=== PATIENT | female | born 1925 | race Two or more races ===

== ENCOUNTER 2017-04-07 10:15 | Inpatient (IN) | payer MEDICAID, OTHER, SELFPAY ==
[~2017-04-07] VITALS: Ht 152.4 cm; Wt 73.7 kg
[2017-04-07] MEDS ORDERED: SODIUM CHLORIDE FLUSH 10ML SYR IVF ONE (11:30)
[2017-04-07 11:34] LABS: INTERNATIONAL NORMALIZED RATIO 1.08 (0.93-1.1); PROTHROMBIN TIME 11.2 Seconds (9.6-11.5)
[2017-04-07 11:39] LABS: ALBUMIN 3.5 g/dL (3.4-5.0); ANION GAP 11 mmol/L (5-15); CHLORIDE 96 mmol/L (98-107)
[2017-04-07 11:43] LABS: ALANINE AMINOTRANSFERASE 20 U/L (12-78); ALKALINE PHOSPHATASE 110 U/L (45-117); BILIRUBIN,TOTAL 0.4 mg/dL (0.2-1.0); CREATININE 2.62 mg/dL (0.55-1.02); TOTAL PROTEIN 8.5 g/dL (6.4-8.2)
[2017-04-07 11:56] LABS: BASOPHILS # (AUTO) 0.03 x10^3/uL (0-0.1); BASOPHILS % (AUTO) 0 % (0-1); EOSINOPHILS % (AUTO) 0 % (1-7); LYMPHOCYTES # (AUTO) 1.24 x10^3/uL (1-3.4); LYMPHOCYTES % (AUTO) 12 % (22-44); MD NO; MEAN CORPUSCULAR VOLUME 85.3 fL (80-100); MEAN PLATELET VOLUME 10.9 fL (7.4-10.4); MONOCYTES # (AUTO) 0.77 x10^3/uL (0.2-0.8); MONOCYTES % (AUTO) 7 % (2-9); NEUTROPHILS # (AUTO) 8.54 x10^3/uL (1.8-6.8); NEUTROPHILS % (AUTO) 81 % (42-75); PLATELET COUNT 312 x10^3/uL (130-400); RED CELL DISTRIBUTION WIDTH 12.5 % (9.6-15.2)
[2017-04-07 11:58] LABS: ACETONE, SERUM Negative (Negative)
[2017-04-07 12:39] LABS: CULTURE INDICATED? YES; MICROSCOPIC INDICATED
[2017-04-07] MEDS ORDERED: SODIUM CHLORIDE 0.9% 1,000ML IVBOLUS ONE (13:00)
[2017-04-07] MEDS ORDERED: POLYETHYLENE GLYCOL 17 GM PACKET PO PRN (14:00)
[2017-04-07] MEDS ORDERED: PHARMACY MAY ADJ FOR RENAL FX MC PRN (14:00)
[2017-04-07] MEDS ORDERED: GLUCAGON 1 MG IM PRN (14:00)
[2017-04-07] MEDS ORDERED: DEXTROSE 4 GM TAB.CHEW PO PRN (14:00)
[2017-04-07] MEDS ORDERED: ENALAPRILAT 1.25 MG/ML, 2ML IVPush PRN (14:00)
[2017-04-07] MEDS ORDERED: DOCUSATE 100 MG CAPSULE PO PRN (14:00)
[2017-04-07] MEDS ORDERED: LABETALOL 5MG/ML, 20ML IVPush PRN (14:00)
[2017-04-07] MEDS ORDERED: BISACODYL 10 MG SUPP PR PRN (14:00)
[2017-04-07] MEDS ORDERED: DEXTROSE 50%, 50ML SYRINGE IVPush PRN (14:00)
[2017-04-07] MEDS ORDERED: AMIT50TA PO (14:33)
[2017-04-07] MEDS ORDERED: FURO-92 PO (14:33)
[2017-04-07] MEDS ORDERED: CLON0.2T PO (14:33)
[2017-04-07] MEDS ORDERED: DILT240C2 PO (14:33)
[2017-04-07 14:39] VITALS: BP 189/76
[2017-04-07] MEDS: SODIUM CHLORIDE 0.9% 1,000 ML IV SCH (15:51)
[2017-04-07] MEDS: LEVOFLOXACIN/PMX 750MG/150ML 150 ML IV SCH (15:52)
[2017-04-07] MEDS: HEPARIN 5,000 UNITS/ML, 1ML SQ SCH (15:54)
[2017-04-07] MEDS: INSULIN ASPART 100 UNITS/ML, PEN SQ-INSULIN SCH ×2 (16:00→20:43)
[2017-04-07 19:07] VITALS: BP 168/72
[2017-04-07] MEDS: SODIUM CHLORIDE FLUSH 10ML SYR IVF SCH (20:46)
[2017-04-08] MEDS: HEPARIN 5,000 UNITS/ML, 1ML SQ SCH ×3 (00:38→16:00)
[2017-04-08 00:54] VITALS: BP 170/74
[2017-04-08] MEDS: SODIUM CHLORIDE 0.9% 1,000 ML IV SCH (03:25)
[2017-04-08 05:34] LABS: CHLORIDE 107 mmol/L (98-107)
[2017-04-08] MEDS: ASPIRIN 325 MG TABLET EC PO SCH (05:35)
[2017-04-08 05:57] LABS: ALANINE AMINOTRANSFERASE 23 U/L (12-78); ALBUMIN 2.5 g/dL (3.4-5.0); ALKALINE PHOSPHATASE 94 U/L (45-117); ANION GAP 9 mmol/L (5-15); BILIRUBIN,TOTAL 0.5 mg/dL (0.2-1.0); CALCIUM 8.5 mg/dL (8.5-10.1); CREATININE 1.76 mg/dL (0.55-1.02); THYROID STIMULATING HORMONE 0.797 mIU/L (0.358-3.740)
[2017-04-08 06:15] LABS: BASOPHILS # (AUTO) 0.02 x10^3/uL (0-0.1); BASOPHILS % (AUTO) 0 % (0-1); EOSINOPHILS # (AUTO) 0.01 x10^3/uL (0-0.4); EOSINOPHILS % (AUTO) 0 % (1-7); LYMPHOCYTES # (AUTO) 0.98 x10^3/uL (1-3.4); LYMPHOCYTES % (AUTO) 10 % (22-44); MD NO; MEAN CORPUSCULAR HEMOGLOBIN 29.1 pg (27.0-34.8); MEAN CORPUSCULAR HGB CONC 33.4 g/dL (32.4-35.8); MEAN CORPUSCULAR VOLUME 87.2 fL (80-100); MEAN PLATELET VOLUME 9.6 fL (7.4-10.4); MONOCYTES # (AUTO) 0.69 x10^3/uL (0.2-0.8); MONOCYTES % (AUTO) 7 % (2-9); NEUTROPHILS # (AUTO) 7.85 x10^3/uL (1.8-6.8); NEUTROPHILS % (AUTO) 82 % (42-75); PLATELET COUNT 325 x10^3/uL (130-400); RED BLOOD COUNT 4.09 x10^6/uL (3.82-5.3); RED CELL DISTRIBUTION WIDTH 12.4 % (9.6-15.2)
[2017-04-08 08:00] VITALS: BP 154/67
[2017-04-08] MEDS: DILTIAZEM 240 MG CAP.ER.24H PO SCH (08:40)
[2017-04-08] MEDS: SODIUM CHLORIDE FLUSH 10ML SYR IVF SCH ×2 (08:42→21:26)
[2017-04-08] MEDS: CARVEDILOL 12.5 MG TABLET PO SCH ×2 (08:52→18:07)
[2017-04-08] MEDS: INSULIN ASPART 100 UNITS/ML, PEN SQ-INSULIN SCH ×4 (09:49→21:26)
[2017-04-08] MEDS: SODIUM BICARBONATE 8.4% 100 MEQ in DEXTROSE 5% 1,000 ML IV SCH (10:08)
[2017-04-08 14:57] VITALS: BP 135/54
[2017-04-08] MEDS: LEVOFLOXACIN/PMX 750MG/150ML 150 ML IV SCH (15:04)
[2017-04-08 19:20] VITALS: BP 135/55
[2017-04-08 19:38] LABS: ANION GAP 8 mmol/L (5-15); CALCIUM 7.8 mg/dL (8.5-10.1); CHLORIDE 106 mmol/L (98-107); CREATININE 1.72 mg/dL (0.55-1.02)
[2017-04-09 00:33] VITALS: BP 134/69
[2017-04-09 00:52] LABS: ANION GAP 8 mmol/L (5-15); CALCIUM 8.1 mg/dL (8.5-10.1); CHLORIDE 104 mmol/L (98-107); CREATININE 1.74 mg/dL (0.55-1.02)
[2017-04-09] MEDS: HEPARIN 5,000 UNITS/ML, 1ML SQ SCH ×3 (02:21→17:16)
[2017-04-09] MEDS: SODIUM BICARBONATE 8.4% 100 MEQ in DEXTROSE 5% 1,000 ML IV SCH (02:21)
[2017-04-09] MEDS: ACETAMINOPHEN 325 MG TABLET PO PRN (03:42)
[2017-04-09 05:16] LABS: BASOPHILS # (AUTO) 0.04 x10^3/uL (0-0.1); BASOPHILS % (AUTO) 1 % (0-1); EOSINOPHILS # (AUTO) 0.04 x10^3/uL (0-0.4); EOSINOPHILS % (AUTO) 0 % (1-7); LYMPHOCYTES # (AUTO) 1.26 x10^3/uL (1-3.4); LYMPHOCYTES % (AUTO) 16 % (22-44); MD NO; MEAN CORPUSCULAR HEMOGLOBIN 29.4 pg (27.0-34.8); MEAN CORPUSCULAR HGB CONC 33.8 g/dL (32.4-35.8); MEAN CORPUSCULAR VOLUME 86.9 fL (80-100); MEAN PLATELET VOLUME 9.6 fL (7.4-10.4); MONOCYTES % (AUTO) 7 % (2-9); NEUTROPHILS # (AUTO) 6.19 x10^3/uL (1.8-6.8); NEUTROPHILS % (AUTO) 76 % (42-75); PLATELET COUNT 280 x10^3/uL (130-400); RED BLOOD COUNT 3.51 x10^6/uL (3.82-5.3); RED CELL DISTRIBUTION WIDTH 12.5 % (9.6-15.2)
[2017-04-09 05:25] LABS: CHLORIDE 103 mmol/L (98-107)
[2017-04-09 05:32] LABS: ALANINE AMINOTRANSFERASE 83 U/L (12-78); ALBUMIN 2.3 g/dL (3.4-5.0); ALKALINE PHOSPHATASE 219 U/L (45-117); ANION GAP 7 mmol/L (5-15); BILIRUBIN,TOTAL 0.4 mg/dL (0.2-1.0); CALCIUM 7.8 mg/dL (8.5-10.1); CREATININE 1.66 mg/dL (0.55-1.02); TOTAL PROTEIN 6.4 g/dL (6.4-8.2)
[2017-04-09] MEDS: CARVEDILOL 12.5 MG TABLET PO SCH ×2 (06:25→18:14)
[2017-04-09] MEDS: ASPIRIN 325 MG TABLET EC PO SCH (06:26)
[2017-04-09 07:15] VITALS: BP 131/56
[2017-04-09] MEDS ORDERED: DIPHENHYDRAMINE 50 MG/ML, 1ML IVPush PRN (09:00)
[2017-04-09] MEDS ORDERED: MEROPENEM 1 GM in SODIUM CHLORIDE 0.9% 100 ML IV SCH (09:00)
[2017-04-09] MEDS: SODIUM CHLORIDE FLUSH 10ML SYR IVF SCH ×2 (09:32→21:09)
[2017-04-09] MEDS: INSULIN ASPART 100 UNITS/ML, PEN SQ-INSULIN SCH ×4 (09:32→21:09)
[2017-04-09] MEDS: INSULIN DETEMIR 100 UNITS/ML, PEN SQ-INSULIN SCH ×2 (10:25→20:05)
[2017-04-09] MEDS: SODIUM CHLORIDE 0.9% 1,000 ML IV SCH (10:26)
[2017-04-09] MEDS: DILTIAZEM 240 MG CAP.ER.24H PO SCH (11:10)
[2017-04-09 12:14] LABS: CHLORIDE 104 mmol/L (98-107)
[2017-04-09 12:22] LABS: ANION GAP 8 mmol/L (5-15); CALCIUM 8.3 mg/dL (8.5-10.1); CREATININE 1.75 mg/dL (0.55-1.02)
[2017-04-09] MEDS: ONDANSETRON 2MG/ML, 2ML IVPush PRN ×2 (13:10→21:16)
[2017-04-09 14:47] VITALS: BP 133/64
[2017-04-09 20:06] VITALS: BP 125/59
[2017-04-09] MEDS: HYDROcodone/APAP 5/325 TABLET PO PRN (21:08)
[2017-04-10] MEDS: MEROPENEM IV SCH ×3 (00:31→23:53)
[2017-04-10] MEDS: SODIUM CHLORIDE 0.9% IV SCH ×3 (00:31→23:53)
[2017-04-10] MEDS: HEPARIN 5,000 UNITS/ML, 1ML SQ SCH ×3 (00:32→16:00)
[2017-04-10] MEDS: SODIUM CHLORIDE 0.9% 1,000 ML IV SCH (00:34)
[2017-04-10 01:39] VITALS: BP 147/65
[2017-04-10] MEDS: HYDROcodone/APAP 5/325 TABLET PO PRN ×2 (03:15→11:52)
[2017-04-10 05:48] LABS: BASOPHILS # (AUTO) 0.05 x10^3/uL (0-0.1); BASOPHILS % (AUTO) 1 % (0-1); EOSINOPHILS # (AUTO) 0.08 x10^3/uL (0-0.4); EOSINOPHILS % (AUTO) 1 % (1-7); LYMPHOCYTES # (AUTO) 1.74 x10^3/uL (1-3.4); LYMPHOCYTES % (AUTO) 20 % (22-44); MD NO; MEAN CORPUSCULAR HEMOGLOBIN 29.2 pg (27.0-34.8); MEAN CORPUSCULAR HGB CONC 33.4 g/dL (32.4-35.8); MEAN CORPUSCULAR VOLUME 87.5 fL (80-100); MEAN PLATELET VOLUME 9.1 fL (7.4-10.4); MONOCYTES # (AUTO) 0.59 x10^3/uL (0.2-0.8); MONOCYTES % (AUTO) 7 % (2-9); NEUTROPHILS % (AUTO) 71 % (42-75); PLATELET COUNT 303 x10^3/uL (130-400); RED BLOOD COUNT 3.66 x10^6/uL (3.82-5.3); RED CELL DISTRIBUTION WIDTH 12.6 % (9.6-15.2)
[2017-04-10 06:04] LABS: CHLORIDE 109 mmol/L (98-107)
[2017-04-10 06:10] VITALS: BP 164/70
[2017-04-10 06:11] LABS: % IRON SATURATION 15 % (20-55); ALANINE AMINOTRANSFERASE 59 U/L (12-78); ALBUMIN 2.3 g/dL (3.4-5.0); ALKALINE PHOSPHATASE 196 U/L (45-117); ANION GAP 8 mmol/L (5-15); BILIRUBIN,TOTAL 0.3 mg/dL (0.2-1.0); CALCIUM 8.2 mg/dL (8.5-10.1); CREATININE 1.34 mg/dL (0.55-1.02); IRON LEVEL 41 mcg/dL (50-170); TOTAL IRON BINDING CAPACITY 279 mcg/dL (250-450); TOTAL PROTEIN 6.4 g/dL (6.4-8.2)
[2017-04-10] MEDS: ASPIRIN 325 MG TABLET EC PO SCH (06:11)
[2017-04-10] MEDS: CARVEDILOL 12.5 MG TABLET PO SCH ×2 (06:11→17:36)
[2017-04-10 07:14] VITALS: BP 143/60
[2017-04-10 07:24] VITALS: BP 140/66
[2017-04-10] MEDS: INSULIN ASPART 100 UNITS/ML, PEN SQ-INSULIN SCH ×4 (08:52→21:33)
[2017-04-10] MEDS: SODIUM CHLORIDE FLUSH 10ML SYR IVF SCH ×2 (08:52→21:32)
[2017-04-10] MEDS: INSULIN DETEMIR 100 UNITS/ML, PEN SQ-INSULIN SCH ×2 (08:53→21:33)
[2017-04-10] MEDS: DILTIAZEM 240 MG CAP.ER.24H PO SCH (08:53)
[2017-04-10 12:58] VITALS: BP 131/46
[2017-04-10] MEDS ORDERED: SODIUM CHLORIDE 0.9% 1,000 ML IV SCH (17:00)
[2017-04-10] MEDS: FERROUS GLUCONATE 324 MG TABLET PO SCH (17:36)
[2017-04-10] MEDS: ONDANSETRON 2MG/ML, 2ML IVPush PRN (17:51)
[2017-04-10 19:46] VITALS: BP 144/61
[2017-04-11] MEDS: HYDROcodone/APAP 5/325 TABLET PO PRN ×2 (00:01→09:30)
[2017-04-11] MEDS: ONDANSETRON 2MG/ML, 2ML IVPush PRN (00:01)
[2017-04-11] MEDS: HEPARIN 5,000 UNITS/ML, 1ML SQ SCH ×3 (00:10→18:23)
[2017-04-11 01:03] VITALS: BP 113/77
[2017-04-11] MEDS: CARVEDILOL 12.5 MG TABLET PO SCH ×2 (05:45→18:23)
[2017-04-11] MEDS: ASPIRIN 325 MG TABLET EC PO SCH (05:45)
[2017-04-11 07:23] VITALS: BP 169/69
[2017-04-11] MEDS: INSULIN DETEMIR 100 UNITS/ML, PEN SQ-INSULIN SCH ×2 (09:20→21:26)
[2017-04-11] MEDS: DILTIAZEM 240 MG CAP.ER.24H PO SCH (09:20)
[2017-04-11] MEDS: INSULIN ASPART 100 UNITS/ML, PEN SQ-INSULIN SCH ×4 (09:21→21:26)
[2017-04-11] MEDS ORDERED: SODIUM CHLORIDE 0.9% 1,000 ML IV SCH (09:30)
[2017-04-11] MEDS: SODIUM CHLORIDE FLUSH 10ML SYR IVF SCH ×2 (09:31→21:28)
[2017-04-11 10:47] LABS: ALANINE AMINOTRANSFERASE 42 U/L (12-78); ALBUMIN 2.2 g/dL (3.4-5.0); ANION GAP 10 mmol/L (5-15); CALCIUM 7.7 mg/dL (8.5-10.1); CHLORIDE 107 mmol/L (98-107); CREATININE 1.11 mg/dL (0.55-1.02)
[2017-04-11 10:49] LABS: ALKALINE PHOSPHATASE 195 U/L (45-117); BILIRUBIN,TOTAL 0.3 mg/dL (0.2-1.0); TOTAL PROTEIN 6.1 g/dL (6.4-8.2)
[2017-04-11 10:54] LABS: BASOPHILS # (AUTO) 0.04 x10^3/uL (0-0.1); BASOPHILS % (AUTO) 0 % (0-1); EOSINOPHILS # (AUTO) 0.05 x10^3/uL (0-0.4); EOSINOPHILS % (AUTO) 0 % (1-7); LYMPHOCYTES # (AUTO) 1.69 x10^3/uL (1-3.4); LYMPHOCYTES % (AUTO) 16 % (22-44); MD NO; MEAN CORPUSCULAR HEMOGLOBIN 28.8 pg (27.0-34.8); MEAN CORPUSCULAR HGB CONC 33.1 g/dL (32.4-35.8); MEAN PLATELET VOLUME 9.6 fL (7.4-10.4); MONOCYTES # (AUTO) 0.73 x10^3/uL (0.2-0.8); MONOCYTES % (AUTO) 7 % (2-9); NEUTROPHILS # (AUTO) 8.12 x10^3/uL (1.8-6.8); NEUTROPHILS % (AUTO) 76 % (42-75); PLATELET COUNT 270 x10^3/uL (130-400); RED BLOOD COUNT 3.44 x10^6/uL (3.82-5.3); RED CELL DISTRIBUTION WIDTH 12.9 % (9.6-15.2)
[2017-04-11] MEDS: MEROPENEM IV SCH (12:04)
[2017-04-11] MEDS: SODIUM CHLORIDE 0.9% IV SCH (12:04)
[2017-04-11 13:57] VITALS: BP 128/58
[2017-04-11] MEDS: IRON SUCROSE COMPLEX 100MG/5ML IV SCH (14:46)
[2017-04-11] MEDS: FERROUS GLUCONATE 324 MG TABLET PO SCH (18:23)
[2017-04-11 18:59] VITALS: BP 163/61
[2017-04-11] MEDS: metroNIDAZOLE 500 MG TABLET PO SCH (21:26)
[2017-04-12] MEDS: HYDROcodone/APAP 5/325 TABLET PO PRN ×3 (00:35→18:08)
[2017-04-12 01:12] VITALS: BP 170/58
[2017-04-12] MEDS: HEPARIN 5,000 UNITS/ML, 1ML SQ SCH ×3 (02:11→18:02)
[2017-04-12 05:40] VITALS: BP 179/68
[2017-04-12] MEDS: CARVEDILOL 12.5 MG TABLET PO SCH ×2 (05:41→18:01)
[2017-04-12] MEDS: ASPIRIN 325 MG TABLET EC PO SCH (05:41)
[2017-04-12 08:00] VITALS: BP 158/63
[2017-04-12] MEDS: metroNIDAZOLE 500 MG TABLET PO SCH ×2 (08:26→20:02)
[2017-04-12] MEDS: IRON SUCROSE COMPLEX 100MG/5ML IV SCH (08:26)
[2017-04-12] MEDS: DILTIAZEM 240 MG CAP.ER.24H PO SCH (08:26)
[2017-04-12] MEDS: INSULIN DETEMIR 100 UNITS/ML, PEN SQ-INSULIN SCH ×2 (08:27→20:02)
[2017-04-12] MEDS: INSULIN ASPART 100 UNITS/ML, PEN SQ-INSULIN SCH ×4 (08:27→20:03)
[2017-04-12] MEDS: SODIUM CHLORIDE FLUSH 10ML SYR IVF SCH ×2 (08:28→20:02)
[2017-04-12 13:35] VITALS: BP 137/62
[2017-04-12 19:03] VITALS: BP 164/74
[2017-04-12] MEDS: FERROUS GLUCONATE 324 MG TABLET PO SCH (19:24)
[2017-04-13] MEDS: HYDROcodone/APAP 5/325 TABLET PO PRN (00:33)
[2017-04-13 01:38] VITALS: BP 164/57
[2017-04-13] MEDS: HEPARIN 5,000 UNITS/ML, 1ML SQ SCH ×3 (01:43→18:22)
[2017-04-13] MEDS: ASPIRIN 325 MG TABLET EC PO SCH (05:32)
[2017-04-13] MEDS: CARVEDILOL 12.5 MG TABLET PO SCH ×2 (05:32→18:22)
[2017-04-13 09:04] VITALS: BP 171/67
[2017-04-13] MEDS: INSULIN ASPART 100 UNITS/ML, PEN SQ-INSULIN SCH ×4 (09:42→21:42)
[2017-04-13] MEDS: INSULIN DETEMIR 100 UNITS/ML, PEN SQ-INSULIN SCH ×2 (09:43→21:42)
[2017-04-13] MEDS: DILTIAZEM 240 MG CAP.ER.24H PO SCH (09:43)
[2017-04-13] MEDS: SODIUM CHLORIDE FLUSH 10ML SYR IVF SCH ×2 (09:43→21:43)
[2017-04-13] MEDS: IRON SUCROSE COMPLEX 100MG/5ML IV SCH (09:43)
[2017-04-13 09:45] VITALS: BP 169/55
[2017-04-13] MEDS: metroNIDAZOLE 500 MG TABLET PO SCH ×2 (09:46→21:42)
[2017-04-13 15:23] VITALS: BP 136/56
[2017-04-13] MEDS: FERROUS GLUCONATE 324 MG TABLET PO SCH (18:21)
[2017-04-13 19:59] VITALS: BP 159/66
[2017-04-14 02:06] VITALS: BP 142/58
[2017-04-14] MEDS: HEPARIN 5,000 UNITS/ML, 1ML SQ SCH ×3 (02:08→17:43)
[2017-04-14] MEDS: HYDROcodone/APAP 5/325 TABLET PO PRN ×2 (02:08→20:14)
[2017-04-14 04:37] VITALS: BP 160/63
[2017-04-14] MEDS: CARVEDILOL 12.5 MG TABLET PO SCH ×2 (06:30→17:44)
[2017-04-14] MEDS: ASPIRIN 325 MG TABLET EC PO SCH (06:30)
[2017-04-14 09:17] VITALS: BP 148/76
[2017-04-14] MEDS: IRON SUCROSE COMPLEX 100MG/5ML IV SCH (09:19)
[2017-04-14] MEDS: DILTIAZEM 240 MG CAP.ER.24H PO SCH (09:19)
[2017-04-14] MEDS: metroNIDAZOLE 500 MG TABLET PO SCH ×2 (09:19→20:14)
[2017-04-14] MEDS: INSULIN DETEMIR 100 UNITS/ML, PEN SQ-INSULIN SCH ×2 (09:19→21:46)
[2017-04-14] MEDS: SODIUM CHLORIDE FLUSH 10ML SYR IVF SCH ×2 (09:19→20:14)
[2017-04-14] MEDS: INSULIN ASPART 100 UNITS/ML, PEN SQ-INSULIN SCH ×4 (09:19→21:47)
[2017-04-14 11:17] LABS: BASOPHILS # (AUTO) 0.05 x10^3/uL (0-0.1); BASOPHILS % (AUTO) 1 % (0-1); EOSINOPHILS # (AUTO) 0.03 x10^3/uL (0-0.4); EOSINOPHILS % (AUTO) 0 % (1-7); LYMPHOCYTES # (AUTO) 1.54 x10^3/uL (1-3.4); LYMPHOCYTES % (AUTO) 15 % (22-44); MD NO; MEAN CORPUSCULAR HEMOGLOBIN 29.2 pg (27.0-34.8); MEAN CORPUSCULAR HGB CONC 33.1 g/dL (32.4-35.8); MEAN CORPUSCULAR VOLUME 88.2 fL (80-100); MEAN PLATELET VOLUME 8.9 fL (7.4-10.4); MONOCYTES # (AUTO) 0.85 x10^3/uL (0.2-0.8); MONOCYTES % (AUTO) 8 % (2-9); NEUTROPHILS # (AUTO) 7.63 x10^3/uL (1.8-6.8); NEUTROPHILS % (AUTO) 75 % (42-75); PLATELET COUNT 229 x10^3/uL (130-400); RED BLOOD COUNT 3.58 x10^6/uL (3.82-5.3); RED CELL DISTRIBUTION WIDTH 12.9 % (9.6-15.2)
[2017-04-14 11:37] LABS: ALANINE AMINOTRANSFERASE 26 U/L (12-78); ALBUMIN 2.1 g/dL (3.4-5.0); ANION GAP 8 mmol/L (5-15); CALCIUM 8.2 mg/dL (8.5-10.1); CHLORIDE 108 mmol/L (98-107); CREATININE 1.05 mg/dL (0.55-1.02)
[2017-04-14 11:39] LABS: ALKALINE PHOSPHATASE 189 U/L (45-117); BILIRUBIN,TOTAL 0.3 mg/dL (0.2-1.0); TOTAL PROTEIN 6.3 g/dL (6.4-8.2)
[2017-04-14 13:03] LABS: HEMOGLOBIN A1C 11.8 % (4.2-6.3)
[2017-04-14 13:49] VITALS: BP 155/67
[2017-04-14] MEDS: FERROUS GLUCONATE 324 MG TABLET PO SCH (17:44)
[2017-04-14 19:29] VITALS: BP 167/61
[2017-04-15] MEDS: HEPARIN 5,000 UNITS/ML, 1ML SQ SCH ×3 (03:17→22:27)
[2017-04-15 03:19] VITALS: BP 178/70
[2017-04-15] MEDS: HYDROcodone/APAP 5/325 TABLET PO PRN (03:28)
[2017-04-15] MEDS: ASPIRIN 325 MG TABLET EC PO SCH (05:31)
[2017-04-15] MEDS: CARVEDILOL 12.5 MG TABLET PO SCH ×2 (05:32→17:18)
[2017-04-15 07:46] VITALS: BP 164/62
[2017-04-15] MEDS: IRON SUCROSE COMPLEX 100MG/5ML IV SCH (09:24)
[2017-04-15] MEDS: INSULIN ASPART 100 UNITS/ML, PEN SQ-INSULIN SCH ×4 (09:24→22:28)
[2017-04-15] MEDS: metroNIDAZOLE 500 MG TABLET PO SCH (09:25)
[2017-04-15] MEDS: DILTIAZEM 240 MG CAP.ER.24H PO SCH (09:25)
[2017-04-15] MEDS: SODIUM CHLORIDE FLUSH 10ML SYR IVF SCH ×2 (09:25→22:29)
[2017-04-15] MEDS: INSULIN DETEMIR 100 UNITS/ML, PEN SQ-INSULIN SCH ×2 (09:39→22:28)
[2017-04-15 14:01] VITALS: BP 158/67
[2017-04-15] MEDS ORDERED: VANCOMYCIN PER PHARMACY MC PRN (14:30)
[2017-04-15] MEDS: AMLODIPINE 5 MG TABLET PO SCH (14:49)
[2017-04-15] MEDS ORDERED: VANCOMYCIN 1,200 MG in SODIUM CHLORIDE 0.9% 250 ML IV SCH (15:30)
[2017-04-15] MEDS ORDERED: PHARMACOKINETIC CONSULTATION MC ONE (15:30)
[2017-04-15] MEDS ORDERED: PHARMACOKINETIC MONITORING MC PRN (15:30)
[2017-04-15] MEDS: CEFEPIME 2 GM in DEXTROSE 5% 100 ML IV SCH (16:40)
[2017-04-15] MEDS: FERROUS GLUCONATE 324 MG TABLET PO SCH (17:18)
[2017-04-15] MEDS: METRONIDAZOLE PMX 500MG/100ML 100 ML IV SCH (17:19)
[2017-04-15 19:09] VITALS: BP 165/83
[2017-04-16] MEDS: CEFEPIME 2 GM in DEXTROSE 5% 100 ML IV SCH ×2 (00:43→08:00)
[2017-04-16] MEDS: HYDROcodone/APAP 5/325 TABLET PO PRN (01:29)
[2017-04-16] MEDS: METRONIDAZOLE PMX 500MG/100ML 100 ML IV SCH (01:29)
[2017-04-16 03:53] VITALS: BP 193/87
[2017-04-16] MEDS: CARVEDILOL 12.5 MG TABLET PO SCH ×2 (05:55→17:29)
[2017-04-16] MEDS: ASPIRIN 325 MG TABLET EC PO SCH (05:55)
[2017-04-16] MEDS: HEPARIN 5,000 UNITS/ML, 1ML SQ SCH ×2 (05:55→15:27)
[2017-04-16 05:56] LABS: BASOPHILS % (AUTO) 0 % (0-1); EOSINOPHILS # (AUTO) 0.11 x10^3/uL (0-0.4); EOSINOPHILS % (AUTO) 1 % (1-7); LYMPHOCYTES # (AUTO) 1.29 x10^3/uL (1-3.4); LYMPHOCYTES % (AUTO) 13 % (22-44); MD NO; MEAN CORPUSCULAR HGB CONC 32.5 g/dL (32.4-35.8); MEAN CORPUSCULAR VOLUME 89.1 fL (80-100); MEAN PLATELET VOLUME 9.3 fL (7.4-10.4); MONOCYTES # (AUTO) 0.89 x10^3/uL (0.2-0.8); MONOCYTES % (AUTO) 9 % (2-9); NEUTROPHILS # (AUTO) 7.75 x10^3/uL (1.8-6.8); NEUTROPHILS % (AUTO) 77 % (42-75); PLATELET COUNT 231 x10^3/uL (130-400); RED BLOOD COUNT 3.78 x10^6/uL (3.82-5.3); RED CELL DISTRIBUTION WIDTH 13.1 % (9.6-15.2)
[2017-04-16 06:05] LABS: CHLORIDE 109 mmol/L (98-107)
[2017-04-16 06:10] LABS: ANION GAP 10 mmol/L (5-15); CALCIUM 8.1 mg/dL (8.5-10.1); CREATININE 1.01 mg/dL (0.55-1.02)
[2017-04-16 07:44] VITALS: BP 181/70
[2017-04-16] MEDS ORDERED: CEFTRIAXONE PMX 1GM/50ML 50 ML IV SCH (08:30)
[2017-04-16] MEDS ORDERED: INSULIN DETEMIR 100 UNITS/ML, PEN SQ-INSULIN SCH (09:00)
[2017-04-16] MEDS ORDERED: IRON SUCROSE COMPLEX 100MG/5ML IV SCH (09:00)
[2017-04-16] MEDS: AMLODIPINE 5 MG TABLET PO SCH (09:19)
[2017-04-16] MEDS: DILTIAZEM 240 MG CAP.ER.24H PO SCH (09:19)
[2017-04-16] MEDS: INSULIN ASPART 100 UNITS/ML, PEN SQ-INSULIN SCH ×4 (09:20→21:30)
[2017-04-16] MEDS: SODIUM CHLORIDE FLUSH 10ML SYR IVF SCH ×2 (09:22→21:28)
[2017-04-16] MEDS: AZITHROMYCIN 500 MG in SODIUM CHLORIDE 0.9% 250 ML IV SCH (10:08)
[2017-04-16 12:00] VITALS: BP 169/72
[2017-04-16] MEDS: FERROUS GLUCONATE 324 MG TABLET PO SCH (17:29)
[2017-04-16 20:52] VITALS: BP 142/61
[2017-04-16] MEDS: GUAIFENESIN ER 600 MG TABLET PO SCH (21:29)
[2017-04-17] MEDS: HEPARIN 5,000 UNITS/ML, 1ML SQ SCH ×3 (00:05→16:24)
[2017-04-17 02:50] VITALS: BP 161/68
[2017-04-17] MEDS: ASPIRIN 325 MG TABLET EC PO SCH (05:17)
[2017-04-17] MEDS: CARVEDILOL 12.5 MG TABLET PO SCH ×2 (05:17→18:20)
[2017-04-17 05:18] LABS: BASOPHILS # (AUTO) 0.04 x10^3/uL (0-0.1); BASOPHILS % (AUTO) 0 % (0-1); EOSINOPHILS # (AUTO) 0.27 x10^3/uL (0-0.4); EOSINOPHILS % (AUTO) 3 % (1-7); LYMPHOCYTES # (AUTO) 1.37 x10^3/uL (1-3.4); LYMPHOCYTES % (AUTO) 13 % (22-44); MD NO; MEAN CORPUSCULAR HEMOGLOBIN 29.4 pg (27.0-34.8); MEAN CORPUSCULAR HGB CONC 32.9 g/dL (32.4-35.8); MEAN CORPUSCULAR VOLUME 89.4 fL (80-100); MEAN PLATELET VOLUME 9.4 fL (7.4-10.4); MONOCYTES # (AUTO) 0.97 x10^3/uL (0.2-0.8); MONOCYTES % (AUTO) 9 % (2-9); NEUTROPHILS # (AUTO) 7.86 x10^3/uL (1.8-6.8); NEUTROPHILS % (AUTO) 75 % (42-75); PLATELET COUNT 235 x10^3/uL (130-400); RED BLOOD COUNT 3.66 x10^6/uL (3.82-5.3); RED CELL DISTRIBUTION WIDTH 13.5 % (9.6-15.2)
[2017-04-17 06:40] LABS: ALANINE AMINOTRANSFERASE 29 U/L (12-78); ALBUMIN 2.2 g/dL (3.4-5.0); ALKALINE PHOSPHATASE 174 U/L (45-117); ANION GAP 10 mmol/L (5-15); BILIRUBIN,TOTAL 0.3 mg/dL (0.2-1.0); CALCIUM 8.9 mg/dL (8.5-10.1); CHLORIDE 111 mmol/L (98-107); CREATININE 0.91 mg/dL (0.55-1.02); TOTAL PROTEIN 6.5 g/dL (6.4-8.2)
[2017-04-17] MEDS: INSULIN ASPART 100 UNITS/ML, PEN SQ-INSULIN SCH ×4 (07:00→20:18)
[2017-04-17 08:02] VITALS: BP 165/69
[2017-04-17] MEDS ORDERED: POTASSIUM PHOSPHATE 44 MEQ in SODIUM CHLORIDE 0.9% 500 ML IV ONE (09:00)
[2017-04-17] MEDS ORDERED: AMLODIPINE 2.5 MG TABLET PO SCH (09:00)
[2017-04-17] MEDS: AMLODIPINE 5 MG TABLET PO SCH ×3 (09:00→23:20)
[2017-04-17] MEDS ORDERED: AMLODIPINE 5 MG TABLET ONE (09:14)
[2017-04-17] MEDS: metroNIDAZOLE 500 MG TABLET PO SCH ×4 (09:25→23:17)
[2017-04-17] MEDS: CEFTRIAXONE 1,000 MG in SODIUM CHLORIDE 0.9% 50 ML IV SCH (09:25)
[2017-04-17] MEDS: SODIUM CHLORIDE FLUSH 10ML SYR IVF SCH ×2 (09:25→20:16)
[2017-04-17] MEDS: DILTIAZEM 240 MG CAP.ER.24H PO SCH (09:25)
[2017-04-17] MEDS: GUAIFENESIN ER 600 MG TABLET PO SCH ×3 (09:25→23:18)
[2017-04-17] MEDS: INSULIN DETEMIR 100 UNITS/ML, PEN SQ-INSULIN SCH (09:26)
[2017-04-17] MEDS: AZITHROMYCIN 500 MG in SODIUM CHLORIDE 0.9% 250 ML IV SCH (11:24)
[2017-04-17 12:29] VITALS: BP 139/84
[2017-04-17] MEDS: FERROUS GLUCONATE 324 MG TABLET PO SCH (16:24)
[2017-04-17 19:06] VITALS: BP 160/77
[2017-04-17 23:13] VITALS: BP 171/69
[2017-04-17] MEDS: ACETAMINOPHEN 325 MG TABLET PO PRN (23:17)
[2017-04-18 01:24] VITALS: BP 155/69
[2017-04-18 05:35] LABS: CHLORIDE 109 mmol/L (98-107)
[2017-04-18 05:46] LABS: ANION GAP 9 mmol/L (5-15); CALCIUM 8.4 mg/dL (8.5-10.1); CREATININE 1.02 mg/dL (0.55-1.02)
[2017-04-18 06:30] VITALS: BP 180/77
[2017-04-18] MEDS: ASPIRIN 325 MG TABLET EC PO SCH (06:34)
[2017-04-18] MEDS: HEPARIN 5,000 UNITS/ML, 1ML SQ SCH ×3 (06:34→21:19)
[2017-04-18] MEDS: CARVEDILOL 12.5 MG TABLET PO SCH (06:34)
[2017-04-18 09:19] VITALS: BP 156/65
[2017-04-18] MEDS: INSULIN ASPART 100 UNITS/ML, PEN SQ-INSULIN SCH ×4 (10:19→21:08)
[2017-04-18] MEDS: INSULIN DETEMIR 100 UNITS/ML, PEN SQ-INSULIN SCH (10:20)
[2017-04-18] MEDS: AMLODIPINE 5 MG TABLET PO SCH ×2 (10:20→21:08)
[2017-04-18] MEDS: DILTIAZEM 240 MG CAP.ER.24H PO SCH (10:21)
[2017-04-18] MEDS: GUAIFENESIN ER 600 MG TABLET PO SCH ×2 (10:21→21:08)
[2017-04-18] MEDS: metroNIDAZOLE 500 MG TABLET PO SCH ×3 (10:21→21:08)
[2017-04-18] MEDS: SODIUM CHLORIDE FLUSH 10ML SYR IVF SCH ×2 (10:21→21:07)
[2017-04-18] MEDS: AZITHROMYCIN 500 MG in SODIUM CHLORIDE 0.9% 250 ML IV SCH (10:47)
[2017-04-18 13:38] VITALS: BP 148/68
[2017-04-18] MEDS: CEFTRIAXONE 1,000 MG in SODIUM CHLORIDE 0.9% 50 ML IV SCH (13:43)
[2017-04-18] MEDS: HYDROcodone/APAP 5/325 TABLET PO PRN (14:05)
[2017-04-18] MEDS: ALBUTEROL SULFATE 2.5 MG/3 ML NPPB SCH ×2 (15:23→20:50)
[2017-04-18] MEDS ORDERED: ALBUTEROL SULFATE 2.5 MG/3 ML NPPB PRN (15:30)
[2017-04-18] MEDS ORDERED: OMNIPAQUE 350 MG/ML, 100ML BOTTLE ONE (15:52)
[2017-04-18 16:22] VITALS: BP 139/98
[2017-04-18] MEDS: CARVEDILOL 25 MG TABLET PO SCH (17:38)
[2017-04-18] MEDS: FERROUS GLUCONATE 324 MG TABLET PO SCH (17:38)
[2017-04-18 20:15] VITALS: BP 165/72
[2017-04-19 01:43] VITALS: BP 150/80
[2017-04-19] MEDS: ASPIRIN 325 MG TABLET EC PO SCH (06:26)
[2017-04-19] MEDS: HEPARIN 5,000 UNITS/ML, 1ML SQ SCH ×2 (06:26→17:03)
[2017-04-19] MEDS: CARVEDILOL 25 MG TABLET PO SCH ×2 (06:29→17:03)
[2017-04-19 07:13] VITALS: BP 156/80
[2017-04-19] MEDS: metroNIDAZOLE 500 MG TABLET PO SCH ×3 (09:39→21:00)
[2017-04-19] MEDS: DILTIAZEM 240 MG CAP.ER.24H PO SCH (09:39)
[2017-04-19] MEDS: GUAIFENESIN ER 600 MG TABLET PO SCH ×2 (09:40→21:18)
[2017-04-19] MEDS: AMLODIPINE 5 MG TABLET PO SCH ×2 (09:40→21:18)
[2017-04-19] MEDS: SODIUM CHLORIDE FLUSH 10ML SYR IVF SCH ×2 (09:41→21:17)
[2017-04-19] MEDS: INSULIN ASPART 100 UNITS/ML, PEN SQ-INSULIN SCH ×3 (09:41→16:00)
[2017-04-19] MEDS: INSULIN DETEMIR 100 UNITS/ML, PEN SQ-INSULIN SCH (09:42)
[2017-04-19] MEDS: ALBUTEROL SULFATE 2.5 MG/3 ML NPPB SCH ×3 (11:20→20:29)
[2017-04-19 12:28] VITALS: BP 136/56
[2017-04-19] MEDS: AZITHROMYCIN 500 MG in SODIUM CHLORIDE 0.9% 250 ML IV SCH (13:04)
[2017-04-19] MEDS: CEFTRIAXONE 1,000 MG in SODIUM CHLORIDE 0.9% 50 ML IV SCH (14:18)
[2017-04-19] MEDS: ONDANSETRON 2MG/ML, 2ML IVPush PRN (14:18)
[2017-04-19] MEDS: FERROUS GLUCONATE 324 MG TABLET PO SCH (17:03)
[2017-04-19 19:33] VITALS: BP 121/71
[2017-04-19] MEDS: INSULIN LISPRO 100 UNITS/ML, PEN SQ-INSULIN SCH (22:07)
[2017-04-20] MEDS: HEPARIN 5,000 UNITS/ML, 1ML SQ SCH ×3 (00:03→17:09)
[2017-04-20 00:29] VITALS: BP 128/63
[2017-04-20 05:09] LABS: ALBUMIN 2.3 g/dL (3.4-5.0); ANION GAP 9 mmol/L (5-15); CHLORIDE 110 mmol/L (98-107)
[2017-04-20 05:13] LABS: ALANINE AMINOTRANSFERASE 24 U/L (12-78); ALKALINE PHOSPHATASE 110 U/L (45-117); BILIRUBIN,TOTAL 0.4 mg/dL (0.2-1.0); TOTAL PROTEIN 6.4 g/dL (6.4-8.2)
[2017-04-20 05:21] LABS: BASOPHILS # (AUTO) 0.04 x10^3/uL (0-0.1); BASOPHILS % (AUTO) 1 % (0-1); EOSINOPHILS # (AUTO) 0.07 x10^3/uL (0-0.4); EOSINOPHILS % (AUTO) 1 % (1-7); LYMPHOCYTES # (AUTO) 1.15 x10^3/uL (1-3.4); LYMPHOCYTES % (AUTO) 17 % (22-44); MD NO; MEAN CORPUSCULAR HEMOGLOBIN 29.2 pg (27.0-34.8); MEAN CORPUSCULAR HGB CONC 32.6 g/dL (32.4-35.8); MEAN CORPUSCULAR VOLUME 89.5 fL (80-100); MEAN PLATELET VOLUME 9.4 fL (7.4-10.4); MONOCYTES % (AUTO) 9 % (2-9); NEUTROPHILS # (AUTO) 4.75 x10^3/uL (1.8-6.8); NEUTROPHILS % (AUTO) 72 % (42-75); PLATELET COUNT 245 x10^3/uL (130-400); RED BLOOD COUNT 3.63 x10^6/uL (3.82-5.3); RED CELL DISTRIBUTION WIDTH 14.3 % (9.6-15.2)
[2017-04-20] MEDS: ASPIRIN 325 MG TABLET EC PO SCH (06:17)
[2017-04-20] MEDS: CARVEDILOL 25 MG TABLET PO SCH ×2 (06:17→17:10)
[2017-04-20 06:46] VITALS: BP 113/61
[2017-04-20] MEDS ORDERED: INSULIN LISPRO 100 UNITS/ML, PEN SQ-INSULIN SCH (07:00)
[2017-04-20] MEDS: INSULIN LISPRO 100 UNITS/ML, PEN SQ-INSULIN SCH ×4 (08:20→20:48)
[2017-04-20] MEDS: SODIUM CHLORIDE FLUSH 10ML SYR IVF SCH ×2 (08:21→22:12)
[2017-04-20] MEDS: GUAIFENESIN ER 600 MG TABLET PO SCH ×2 (08:22→20:47)
[2017-04-20] MEDS: metroNIDAZOLE 500 MG TABLET PO SCH ×3 (08:22→21:00)
[2017-04-20] MEDS: AMLODIPINE 5 MG TABLET PO SCH ×2 (08:22→20:47)
[2017-04-20] MEDS: DILTIAZEM 240 MG CAP.ER.24H PO SCH (08:22)
[2017-04-20] MEDS: INSULIN DETEMIR 100 UNITS/ML, PEN SQ-INSULIN SCH (08:23)
[2017-04-20] MEDS: ALBUTEROL SULFATE 2.5 MG/3 ML NPPB SCH ×3 (10:50→20:13)
[2017-04-20] MEDS: AZITHROMYCIN 500 MG in SODIUM CHLORIDE 0.9% 250 ML IV SCH (13:12)
[2017-04-20] MEDS: CEFTRIAXONE 1,000 MG in SODIUM CHLORIDE 0.9% 50 ML IV SCH (14:20)
[2017-04-20 14:49] VITALS: BP 110/64
[2017-04-20] MEDS: FERROUS GLUCONATE 324 MG TABLET PO SCH (17:09)
[2017-04-20] MEDS ORDERED: SODIUM CHLORIDE 0.9% 1,000 ML IV ONE (17:30)
[2017-04-20] MEDS ORDERED: SODIUM CHLORIDE 0.9% 1,000 ML IV SCH (17:30)
[2017-04-20 19:09] VITALS: BP 128/53
[2017-04-21] MEDS: HEPARIN 5,000 UNITS/ML, 1ML SQ SCH ×3 (00:36→16:49)
[2017-04-21 00:58] VITALS: BP 136/58
[2017-04-21 06:28] VITALS: BP 139/55
[2017-04-21] MEDS: ASPIRIN 325 MG TABLET EC PO SCH (06:31)
[2017-04-21] MEDS: CARVEDILOL 25 MG TABLET PO SCH ×2 (06:31→16:49)
[2017-04-21] MEDS: INSULIN DETEMIR 100 UNITS/ML, PEN SQ-INSULIN SCH (08:21)
[2017-04-21] MEDS: INSULIN LISPRO 100 UNITS/ML, PEN SQ-INSULIN SCH ×4 (08:22→20:10)
[2017-04-21] MEDS: GUAIFENESIN ER 600 MG TABLET PO SCH ×2 (08:23→20:10)
[2017-04-21] MEDS: metroNIDAZOLE 500 MG TABLET PO SCH (08:23)
[2017-04-21] MEDS: DOCUSATE 100 MG CAPSULE PO SCH ×2 (08:23→20:10)
[2017-04-21] MEDS: AMLODIPINE 5 MG TABLET PO SCH ×2 (08:24→20:11)
[2017-04-21] MEDS: DILTIAZEM 240 MG CAP.ER.24H PO SCH (08:24)
[2017-04-21] MEDS: SODIUM CHLORIDE FLUSH 10ML SYR IVF SCH ×2 (08:24→20:11)
[2017-04-21] MEDS: ALBUTEROL SULFATE 2.5 MG/3 ML NPPB SCH ×2 (10:58→19:33)
[2017-04-21] MEDS: POLYETHYLENE GLYCOL 17 GM PACKET PO SCH (11:58)
[2017-04-21] MEDS: AZITHROMYCIN 500 MG in SODIUM CHLORIDE 0.9% 250 ML IV SCH (11:58)
[2017-04-21 12:45] VITALS: BP 137/58
[2017-04-21] MEDS: FERROUS GLUCONATE 324 MG TABLET PO SCH (16:49)
[2017-04-21 19:04] VITALS: BP 142/64
[2017-04-21] MEDS ORDERED: ALBUTEROL/IPRATROPIUM 2.5MG/0.5MG, 3 ML ONE (19:28)
[2017-04-21] MEDS: QUETIAPINE 25MG TABLET PO SCH (20:11)
[2017-04-22] VITALS (7 sets, daily range): BP systolic 118–156; BP diastolic 45–74
[2017-04-22] MEDS: HEPARIN 5,000 UNITS/ML, 1ML SQ SCH ×3 (00:37→16:39)
[2017-04-22] MEDS: ASPIRIN 325 MG TABLET EC PO SCH (05:58)
[2017-04-22] MEDS: CARVEDILOL 25 MG TABLET PO SCH ×2 (05:58→16:40)
[2017-04-22] MEDS: ALBUTEROL SULFATE 2.5 MG/3 ML NPPB SCH (07:40)
[2017-04-22] MEDS: INSULIN LISPRO 100 UNITS/ML, PEN SQ-INSULIN SCH ×4 (08:15→21:58)
[2017-04-22] MEDS ORDERED: INSULIN DETEMIR 100 UNITS/ML, PEN SQ-INSULIN SCH ×2 (09:00)
[2017-04-22] MEDS ORDERED: ALBUTEROL/IPRATROPIUM 2.5MG/0.5MG, 3 ML NPPB PRN (09:00)
[2017-04-22] MEDS: SODIUM CHLORIDE FLUSH 10ML SYR IVF SCH ×2 (09:00→21:02)
[2017-04-22] MEDS: ALBUTEROL/IPRATROPIUM 2.5MG/0.5MG, 3 ML NPPB SCH ×3 (10:20→19:40)
[2017-04-22] MEDS: INSULIN GLARGINE 100 UNITS/ML, PEN SQ-INSULIN SCH (10:42)
[2017-04-22] MEDS: DOCUSATE 100 MG CAPSULE PO SCH ×2 (10:42→21:03)
[2017-04-22] MEDS: POLYETHYLENE GLYCOL 17 GM PACKET PO SCH (10:42)
[2017-04-22] MEDS: GUAIFENESIN ER 600 MG TABLET PO SCH ×2 (10:43→21:03)
[2017-04-22] MEDS: AMLODIPINE 5 MG TABLET PO SCH ×2 (10:45→21:00)
[2017-04-22] MEDS: DILTIAZEM 240 MG CAP.ER.24H PO SCH (10:46)
[2017-04-22] MEDS ORDERED: FUROSEMIDE 40 MG/4 ML IVPush ONE (14:30)
[2017-04-22 16:33] LABS: ALBUMIN 2.3 g/dL (3.4-5.0); ANION GAP 8 mmol/L (5-15); CHLORIDE 111 mmol/L (98-107)
[2017-04-22 16:36] LABS: ALANINE AMINOTRANSFERASE 21 U/L (12-78); ALKALINE PHOSPHATASE 102 U/L (45-117); BILIRUBIN,TOTAL 0.2 mg/dL (0.2-1.0); CREATININE 1.09 mg/dL (0.55-1.02); TOTAL PROTEIN 6.6 g/dL (6.4-8.2)
[2017-04-22] MEDS: FERROUS GLUCONATE 324 MG TABLET PO SCH (16:40)
[2017-04-22] MEDS ORDERED: FUROSEMIDE 20 MG/2 ML ONE (18:12)
[2017-04-22] MEDS ORDERED: FUROSEMIDE 20 MG/2 ML IV ONE ×2 (18:30→22:30)
[2017-04-22] MEDS: QUETIAPINE 25MG TABLET PO SCH (21:03)
[2017-04-22] MEDS ORDERED: OMNIPAQUE 350 MG/ML, 100ML BOTTLE ONE (21:34)
[2017-04-23 02:10] VITALS: BP 135/57
[2017-04-23] MEDS: HEPARIN 5,000 UNITS/ML, 1ML SQ SCH ×3 (02:10→17:48)
[2017-04-23 03:52] LABS: ANION GAP 7 mmol/L (5-15); CHLORIDE 112 mmol/L (98-107); CREATININE 0.93 mg/dL (0.55-1.02)
[2017-04-23] MEDS: INSULIN LISPRO 100 UNITS/ML, PEN SQ-INSULIN SCH ×4 (07:00→20:21)
[2017-04-23] MEDS: ALBUTEROL/IPRATROPIUM 2.5MG/0.5MG, 3 ML NPPB SCH ×4 (07:45→19:15)
[2017-04-23] MEDS ORDERED: FUROSEMIDE 40 MG/4 ML IV ONE (09:30)
[2017-04-23] MEDS: DILTIAZEM 240 MG CAP.ER.24H PO SCH (09:35)
[2017-04-23] MEDS: DOCUSATE 100 MG CAPSULE PO SCH ×2 (09:35→20:10)
[2017-04-23] MEDS: GUAIFENESIN ER 600 MG TABLET PO SCH ×2 (09:35→20:10)
[2017-04-23] MEDS: AMLODIPINE 5 MG TABLET PO SCH ×2 (09:36→20:10)
[2017-04-23] MEDS: SODIUM CHLORIDE FLUSH 10ML SYR IVF SCH ×2 (09:36→20:11)
[2017-04-23] MEDS: ASPIRIN 325 MG TABLET EC PO SCH (09:38)
[2017-04-23] MEDS: CARVEDILOL 25 MG TABLET PO SCH ×2 (09:38→17:56)
[2017-04-23] MEDS: INSULIN GLARGINE 100 UNITS/ML, PEN SQ-INSULIN SCH (09:58)
[2017-04-23] MEDS ORDERED: LIDOCAINE 2%, 20ML ONE (10:20)
[2017-04-23] MEDS: POLYETHYLENE GLYCOL 17 GM PACKET PO SCH (13:34)
[2017-04-23] MEDS: ACETAMINOPHEN 325 MG TABLET PO PRN ×2 (13:54→23:07)
[2017-04-23] MEDS: FERROUS GLUCONATE 324 MG TABLET PO SCH (17:57)
[2017-04-23] MEDS: QUETIAPINE 25MG TABLET PO SCH (20:11)
[2017-04-24] MEDS: HEPARIN 5,000 UNITS/ML, 1ML SQ SCH ×3 (02:09→18:01)
[2017-04-24 04:00] VITALS: BP 118/40
[2017-04-24 06:04] LABS: BASOPHILS # (AUTO) 0.05 x10^3/uL (0-0.1); BASOPHILS % (AUTO) 1 % (0-1); EOSINOPHILS # (AUTO) 0.18 x10^3/uL (0-0.4); EOSINOPHILS % (AUTO) 3 % (1-7); LYMPHOCYTES % (AUTO) 33 % (22-44); MD NO; MEAN CORPUSCULAR HEMOGLOBIN 29.4 pg (27.0-34.8); MEAN CORPUSCULAR HGB CONC 32.8 g/dL (32.4-35.8); MEAN CORPUSCULAR VOLUME 89.4 fL (80-100); MEAN PLATELET VOLUME 9.7 fL (7.4-10.4); MONOCYTES # (AUTO) 0.63 x10^3/uL (0.2-0.8); MONOCYTES % (AUTO) 12 % (2-9); NEUTROPHILS # (AUTO) 2.85 x10^3/uL (1.8-6.8); NEUTROPHILS % (AUTO) 52 % (42-75); PLATELET COUNT 290 x10^3/uL (130-400); RED BLOOD COUNT 3.67 x10^6/uL (3.82-5.3); RED CELL DISTRIBUTION WIDTH 15.5 % (9.6-15.2)
[2017-04-24 06:21] LABS: ALBUMIN 2.2 g/dL (3.4-5.0); ANION GAP 6 mmol/L (5-15); CALCIUM 8.1 mg/dL (8.5-10.1); CHLORIDE 111 mmol/L (98-107)
[2017-04-24 06:26] LABS: ALANINE AMINOTRANSFERASE 16 U/L (12-78); ALKALINE PHOSPHATASE 83 U/L (45-117); BILIRUBIN,TOTAL 0.3 mg/dL (0.2-1.0); CREATININE 0.99 mg/dL (0.55-1.02)
[2017-04-24] MEDS: INSULIN LISPRO 100 UNITS/ML, PEN SQ-INSULIN SCH ×4 (07:00→21:11)
[2017-04-24] MEDS: ALBUTEROL/IPRATROPIUM 2.5MG/0.5MG, 3 ML NPPB SCH ×4 (07:00→20:00)
[2017-04-24] MEDS: INSULIN GLARGINE 100 UNITS/ML, PEN SQ-INSULIN SCH (09:00)
[2017-04-24] MEDS: ASPIRIN 325 MG TABLET EC PO SCH (10:20)
[2017-04-24] MEDS: GUAIFENESIN ER 600 MG TABLET PO SCH ×2 (10:20→21:10)
[2017-04-24] MEDS: CARVEDILOL 25 MG TABLET PO SCH ×2 (10:21→17:56)
[2017-04-24] MEDS: AMLODIPINE 5 MG TABLET PO SCH ×2 (10:21→21:10)
[2017-04-24] MEDS: DOCUSATE 100 MG CAPSULE PO SCH ×2 (10:21→21:10)
[2017-04-24] MEDS: DILTIAZEM 240 MG CAP.ER.24H PO SCH (10:21)
[2017-04-24] MEDS: ACETAMINOPHEN 325 MG TABLET PO PRN (10:21)
[2017-04-24] MEDS: POLYETHYLENE GLYCOL 17 GM PACKET PO SCH (10:21)
[2017-04-24] MEDS: SODIUM CHLORIDE FLUSH 10ML SYR IVF SCH ×2 (10:32→21:17)
[2017-04-24] MEDS: FERROUS GLUCONATE 324 MG TABLET PO SCH (16:50)
[2017-04-24 20:14] VITALS: BP 137/67
[2017-04-24] MEDS: QUETIAPINE 25MG TABLET PO SCH (21:10)
[2017-04-25 00:15] VITALS: BP 139/55
[2017-04-25] MEDS: HEPARIN 5,000 UNITS/ML, 1ML SQ SCH ×3 (02:21→17:43)
[2017-04-25] MEDS: ACETAMINOPHEN 325 MG TABLET PO PRN ×2 (02:22→17:42)
[2017-04-25] MEDS: ASPIRIN 325 MG TABLET EC PO SCH (05:27)
[2017-04-25] MEDS: CARVEDILOL 25 MG TABLET PO SCH ×2 (05:27→17:42)
[2017-04-25] MEDS: ALBUTEROL/IPRATROPIUM 2.5MG/0.5MG, 3 ML NPPB SCH ×4 (07:24→20:00)
[2017-04-25 07:58] VITALS: BP 112/49
[2017-04-25] MEDS: GUAIFENESIN ER 600 MG TABLET PO SCH ×2 (09:08→22:00)
[2017-04-25] MEDS: DILTIAZEM 240 MG CAP.ER.24H PO SCH (09:08)
[2017-04-25] MEDS: AMLODIPINE 5 MG TABLET PO SCH ×2 (09:08→21:00)
[2017-04-25] MEDS: POLYETHYLENE GLYCOL 17 GM PACKET PO SCH (09:09)
[2017-04-25] MEDS: DOCUSATE 100 MG CAPSULE PO SCH ×2 (09:09→20:43)
[2017-04-25] MEDS: SODIUM CHLORIDE FLUSH 10ML SYR IVF SCH ×2 (09:10→22:00)
[2017-04-25] MEDS: INSULIN LISPRO 100 UNITS/ML, PEN SQ-INSULIN SCH ×4 (09:10→20:41)
[2017-04-25] MEDS: INSULIN GLARGINE 100 UNITS/ML, PEN SQ-INSULIN SCH (09:10)
[2017-04-25 15:47] VITALS: BP 122/53
[2017-04-25] MEDS: FERROUS GLUCONATE 324 MG TABLET PO SCH (17:42)
[2017-04-25 20:51] VITALS: BP 115/56
[2017-04-25] MEDS ORDERED: INSULIN GLARGINE 100 UNITS/ML, PEN SQ-INSULIN SCH (21:00)
[2017-04-25] MEDS: QUETIAPINE 25MG TABLET PO SCH (22:00)
[2017-04-26] VITALS (7 sets, daily range): BP systolic 110–150; BP diastolic 56–90
[2017-04-26] MEDS: HEPARIN 5,000 UNITS/ML, 1ML SQ SCH ×3 (02:43→17:39)
[2017-04-26] MEDS: CARVEDILOL 25 MG TABLET PO SCH (05:54)
[2017-04-26] MEDS: ASPIRIN 325 MG TABLET EC PO SCH (06:03)
[2017-04-26] MEDS: INSULIN LISPRO 100 UNITS/ML, PEN SQ-INSULIN SCH ×4 (07:00→21:47)
[2017-04-26] MEDS: ALBUTEROL/IPRATROPIUM 2.5MG/0.5MG, 3 ML NPPB SCH ×4 (07:51→20:00)
[2017-04-26] MEDS: INSULIN GLARGINE 100 UNITS/ML, PEN SQ-INSULIN SCH (08:10)
[2017-04-26] MEDS: DILTIAZEM 240 MG CAP.ER.24H PO SCH (08:11)
[2017-04-26] MEDS: SODIUM CHLORIDE FLUSH 10ML SYR IVF SCH ×2 (08:11→21:45)
[2017-04-26] MEDS: GUAIFENESIN ER 600 MG TABLET PO SCH ×2 (08:11→21:46)
[2017-04-26] MEDS: AMLODIPINE 5 MG TABLET PO SCH ×2 (08:12→21:00)
[2017-04-26] MEDS: DOCUSATE 100 MG CAPSULE PO SCH ×2 (08:14→21:00)
[2017-04-26] MEDS: POLYETHYLENE GLYCOL 17 GM PACKET PO SCH (08:15)
[2017-04-26 13:07] LABS: ANION GAP 8 mmol/L (5-15); CALCIUM 8.3 mg/dL (8.5-10.1); CHLORIDE 107 mmol/L (98-107)
[2017-04-26 13:09] LABS: CREATININE 1.07 mg/dL (0.55-1.02)
[2017-04-26] MEDS: FERROUS GLUCONATE 324 MG TABLET PO SCH (17:01)
[2017-04-26] MEDS: CARVEDILOL 12.5 MG TABLET PO SCH (17:40)
[2017-04-26] MEDS ORDERED: QUETIAPINE 25MG TABLET PO SCH (21:00)
[2017-04-26] MEDS ORDERED: INSULIN GLARGINE 100 UNITS/ML, PEN SQ-INSULIN SCH (21:00)
[2017-04-27 02:00] VITALS: BP 104/53
[2017-04-27] MEDS: HEPARIN 5,000 UNITS/ML, 1ML SQ SCH ×2 (02:29→09:49)
[2017-04-27 05:52] VITALS: BP 134/62
[2017-04-27] MEDS: CARVEDILOL 12.5 MG TABLET PO SCH (06:01)
[2017-04-27] MEDS: ASPIRIN 325 MG TABLET EC PO SCH (06:01)
[2017-04-27] MEDS: INSULIN LISPRO 100 UNITS/ML, PEN SQ-INSULIN SCH ×2 (07:00→11:41)
[2017-04-27] MEDS: ALBUTEROL/IPRATROPIUM 2.5MG/0.5MG, 3 ML NPPB SCH ×2 (07:57→11:02)
[2017-04-27 08:30] VITALS: BP 113/66
[2017-04-27] MEDS ORDERED: INSULIN GLARGINE 100 UNITS/ML, PEN SQ-INSULIN SCH (09:00)
[2017-04-27] MEDS: AMLODIPINE 5 MG TABLET PO SCH (09:37)
[2017-04-27] MEDS: DILTIAZEM 240 MG CAP.ER.24H PO SCH (09:46)
[2017-04-27] MEDS: GUAIFENESIN ER 600 MG TABLET PO SCH (09:46)
[2017-04-27] MEDS ORDERED: CARV12.543 PO (09:48)
[2017-04-27] MEDS ORDERED: ASPI-650 PO (09:48)
[2017-04-27] MEDS ORDERED: QUET50TA5 PO (09:48)
[2017-04-27] MEDS ORDERED: INSU100V8 SQ ×2 (09:48)
[2017-04-27] MEDS: DOCUSATE 100 MG CAPSULE PO SCH (09:48)
[2017-04-27] MEDS: POLYETHYLENE GLYCOL 17 GM PACKET PO SCH (09:48)
[2017-04-27] MEDS ORDERED: FERR325T16 PO (09:48)
[2017-04-27] MEDS ORDERED: DILT240C55 PO (09:48)
[2017-04-27] MEDS: SODIUM CHLORIDE FLUSH 10ML SYR IVF SCH (09:50)
== END 2017-04-27 15:25 | disposition home or self-care (01) | DRG 70 ==
LOC: ED 12:58 → EDIP 13:00 → 4WST 14:21 → 3NE 04-19 08:19 → 4EST 04-22 17:42 → CCU 04-23 03:00 → ICU 04-23 23:21 → 4WST 04-24 18:14
PROVIDERS: ADMIT Hospitalist; ATTEND Hospitalist
PROC: 0W9B3ZZ Drainage of Left Pleural Cavity, Percutaneous Approach (ICD-10-PCS; principal; 2017-04-23)
PROC: 0W993ZZ Drainage of Right Pleural Cavity, Percutaneous Approach (ICD-10-PCS; 2017-04-23)
DX: G93.40 Encephalopathy, unspecified (principal); N17.0 Acute kidney failure with tubular necrosis; J96.00 Acute respiratory failure, unspecified whether with hypoxia or hypercapnia; J90 Pleural effusion, not elsewhere classified; E87.1 Hypo-osmolality and hyponatremia; E11.65 Type 2 diabetes mellitus with hyperglycemia; L03.116 Cellulitis of left lower limb; E87.2 Acidosis; N39.0 Urinary tract infection, site not specified; N13.30 Unspecified hydronephrosis; D50.9 Iron deficiency anemia, unspecified; I50.9 Heart failure, unspecified; E87.5 Hyperkalemia; E78.5 Hyperlipidemia, unspecified; R74.0 Nonspecific elevation of levels of transaminase and lactic acid dehydrogenase [LDH]; B96.89 Other specified bacterial agents as the cause of diseases classified elsewhere; F03.90 Unspecified dementia, unspecified severity, without behavioral disturbance, psychotic disturbance, mood disturbance, and anxiety; I11.0 Hypertensive heart disease with heart failure; N76.0 Acute vaginitis; Z79.4 Long term (current) use of insulin; Z79.82 Long term (current) use of aspirin; Z86.73 Personal history of transient ischemic attack (TIA), and cerebral infarction without residual deficits; Z88.0 Allergy status to penicillin; Z79.899 Other long term (current) drug therapy; L89.629 Pressure ulcer of left heel, unspecified stage
CPT/HCPCS: 32555; 36415; 36600; 70450; 71045; 71275; 76700; 76770; 80048; 80053; 81001; 82010; 82140; 82728; 82803; 82962; 83036; 83540; 83550; 83690; 83735; 83880; 84100; 84443; 85025; 85610; 87040; 87081; 87086; 93005; 93306; 94640; 99285; J0456; J0696; J1644; J1756; J1815; J1940; J1956; J2185; J2405; J3370; J3490; J7070; J7613; J7620; Q9967; J7030; J7040; J7050

== ENCOUNTER 2017-05-29 10:34 | Inpatient (IN) | payer MEDICARE, MEDICAID ==
[~2017-05-29] VITALS: Ht 152.4 cm; Wt 69.2 kg
[~2017-05-29 10:34] MED LIST: AMIT50TA PO; ASPI-650 PO; CARV12.543 PO; CLON0.2T PO; DILT240C2 PO; DILT240C55 PO; FERR325T16 PO; FURO-92 PO; FURO20TA3 PO; GABA300C10 PO; HYDR-3240 PO; HYDR-3343 PO; INSU100V8 SQ; PENT400T2 PO; POLY17PO5 PO; POTA10TA5 PO; QUET50TA5 PO; TRAM50TA2 PO
[2017-05-29] MEDS ORDERED: MORPHINE SULFATE 4 MG/ML, 1ML ONE (11:30)
[2017-05-29] MEDS ORDERED: ONDANSETRON 2MG/ML, 2ML IVPush ONE (11:30)
[2017-05-29] MEDS ORDERED: ONDANSETRON 2MG/ML, 2ML ONE (11:30)
[2017-05-29] MEDS ORDERED: MORPHINE SULFATE 4 MG/ML, 1ML IVPush PRN (11:30)
[2017-05-29 11:36] LABS: BASOPHILS # (AUTO) 0.04 x10^3/uL (0-0.1); BASOPHILS % (AUTO) 1 % (0-1); EOSINOPHILS # (AUTO) 0.07 x10^3/uL (0-0.4); EOSINOPHILS % (AUTO) 1 % (1-7); LYMPHOCYTES # (AUTO) 2.58 x10^3/uL (1-3.4); LYMPHOCYTES % (AUTO) 41 % (22-44); MD NO; MEAN CORPUSCULAR HEMOGLOBIN 29.7 pg (27.0-34.8); MEAN CORPUSCULAR HGB CONC 33.5 g/dL (32.4-35.8); MEAN CORPUSCULAR VOLUME 88.8 fL (80-100); MEAN PLATELET VOLUME 11.6 fL (7.4-10.4); MONOCYTES # (AUTO) 0.46 x10^3/uL (0.2-0.8); MONOCYTES % (AUTO) 7 % (2-9); NEUTROPHILS # (AUTO) 3.17 x10^3/uL (1.8-6.8); NEUTROPHILS % (AUTO) 50 % (42-75); PLATELET COUNT 194 x10^3/uL (130-400); RED BLOOD COUNT 4.36 x10^6/uL (3.82-5.3); RED CELL DISTRIBUTION WIDTH 16.1 % (9.6-15.2)
[2017-05-29 11:45] LABS: INTERNATIONAL NORMALIZED RATIO 1.05 (0.93-1.1); PROTHROMBIN TIME 10.8 Seconds (9.6-11.5)
[2017-05-29 11:48] LABS: ALBUMIN 3.3 g/dL (3.4-5.0); ANION GAP 8 mmol/L (5-15); CALCIUM 8.8 mg/dL (8.5-10.1); CHLORIDE 105 mmol/L (98-107); CREATININE 1.07 mg/dL (0.55-1.02)
[2017-05-29] MEDS ORDERED: ACET325T14 PO (11:50)
[2017-05-29 11:56] LABS: TROPONIN I 0.106 ng/mL (0.000-0.045)
[2017-05-29] MEDS ORDERED: SODIUM CHLORIDE FLUSH 10ML SYR IVF ONE ×2 (12:30→13:00)
[2017-05-29] MEDS ORDERED: SODIUM CHLORIDE 0.9% 1,000 ML IV ONE (12:54)
[2017-05-29] MEDS ORDERED: ASPIRIN 81 MG TABLET CHEW PO ONE (13:00)
[2017-05-29] MEDS ORDERED: HEPARIN 5,000 UNITS/ML, 1ML IV ONE (13:00)
[2017-05-29] MEDS ORDERED: HEPARIN 25,000 UNITS/500ML PMX 500 ML IV PRN (13:00)
[2017-05-29] MEDS ORDERED: HEPARIN 5,000 UNITS/ML, 1ML IV PRN (13:00)
[2017-05-29] MEDS ORDERED: HEPARIN 5,000 UNITS/ML, 1ML ONE (13:50)
[2017-05-29] MEDS ORDERED: HEPARIN 25,000 UNITS/500ML PMX 0 ML ONE (13:51)
[2017-05-29] MEDS ORDERED: POLYETHYLENE GLYCOL 17 GM PACKET PO PRN ×2 (14:00→14:30)
[2017-05-29] MEDS ORDERED: ONDANSETRON 2MG/ML, 2ML IVPush PRN (14:00)
[2017-05-29] MEDS ORDERED: ENOXAPARIN 40 MG/0.4 ML SQ SCH (14:00)
[2017-05-29] MEDS ORDERED: ACETAMINOPHEN 325 MG TABLET PO PRN ×2 (14:00→14:30)
[2017-05-29] MEDS ORDERED: ONDANSETRON ODT 4 MG PO PRN (14:00)
[2017-05-29] MEDS ORDERED: BISACODYL 10 MG SUPP PR PRN (14:00)
[2017-05-29] MEDS ORDERED: ASPIRIN 81 MG TABLET CHEW ONE (14:39)
[2017-05-29] MEDS ORDERED: ENOXAPARIN 40 MG/0.4 ML ONE (15:04)
[2017-05-29] MEDS: INSULIN LISPRO 100 UNITS/ML, PEN SQ-INSULIN SCH ×2 (16:00→20:42)
[2017-05-29] MEDS: GABAPENTIN 300 MG CAPSULE PO SCH ×2 (16:00→20:36)
[2017-05-29] MEDS: PENTOXIFYLLINE 400 MG TABLET.ER PO SCH ×2 (16:00→20:37)
[2017-05-29 18:02] VITALS: BP 148/69
[2017-05-29 19:20] LABS: TROPONIN I 0.128 ng/mL (0.000-0.045)
[2017-05-29 19:29] VITALS: BP 152/56
[2017-05-29] MEDS: LACTULOSE 10 GM/15 ML UDC PO SCH (20:36)
[2017-05-29] MEDS: DOCUSATE 100 MG CAPSULE PO PRN (20:37)
[2017-05-29] MEDS: HYDROcodone/APAP 5/325 TABLET PO PRN (20:50)
[2017-05-30 00:46] VITALS: BP 149/62
[2017-05-30 05:05] LABS: BASOPHILS # (AUTO) 0.07 x10^3/uL (0-0.1); BASOPHILS % (AUTO) 1 % (0-1); EOSINOPHILS # (AUTO) 0.11 x10^3/uL (0-0.4); EOSINOPHILS % (AUTO) 2 % (1-7); LYMPHOCYTES # (AUTO) 3.46 x10^3/uL (1-3.4); LYMPHOCYTES % (AUTO) 53 % (22-44); MD NO; MEAN CORPUSCULAR HEMOGLOBIN 29.4 pg (27.0-34.8); MEAN CORPUSCULAR HGB CONC 33.3 g/dL (32.4-35.8); MEAN CORPUSCULAR VOLUME 88.2 fL (80-100); MEAN PLATELET VOLUME 12.4 fL (7.4-10.4); MONOCYTES # (AUTO) 0.44 x10^3/uL (0.2-0.8); MONOCYTES % (AUTO) 7 % (2-9); NEUTROPHILS % (AUTO) 37 % (42-75); PLATELET COUNT 184 x10^3/uL (130-400); RED BLOOD COUNT 4.12 x10^6/uL (3.82-5.3); RED CELL DISTRIBUTION WIDTH 16.3 % (9.6-15.2)
[2017-05-30 05:19] LABS: CHLORIDE 109 mmol/L (98-107)
[2017-05-30 05:31] LABS: ALANINE AMINOTRANSFERASE 43 U/L (12-78); ALBUMIN 2.9 g/dL (3.4-5.0); ALKALINE PHOSPHATASE 84 U/L (45-117); ANION GAP 7 mmol/L (5-15); BILIRUBIN,TOTAL 0.4 mg/dL (0.2-1.0); CALCIUM 8.8 mg/dL (8.5-10.1); CHOL/HDL RATIO 3.7; CHOLESTEROL, TOTAL 163 mg/dL (140-239); CREATININE 0.98 mg/dL (0.55-1.02); HDL CHOL % 27 % (28-40); HDL CHOLESTEROL (DIRECT) 44 mg/dL (40-60); LDL CHOLESTEROL,CALCULATED 87 mg/dL (54-169); TOTAL PROTEIN 6.8 g/dL (6.4-8.2); TRIGLYCERIDES 160 mg/dL (50-200); VLDL CHOLESTEROL 32 mg/dL (0-25)
[2017-05-30] MEDS: INSULIN LISPRO 100 UNITS/ML, PEN SQ-INSULIN SCH ×4 (07:00→19:44)
[2017-05-30 08:10] VITALS: BP 152/75
[2017-05-30] MEDS: POTASSIUM CHLORIDE 10 MEQ TABLET.ER PO SCH (08:29)
[2017-05-30] MEDS: PENTOXIFYLLINE 400 MG TABLET.ER PO SCH ×3 (08:29→19:37)
[2017-05-30] MEDS: GABAPENTIN 300 MG CAPSULE PO SCH ×3 (08:29→19:37)
[2017-05-30] MEDS: FUROSEMIDE 20 MG TABLET PO SCH (08:29)
[2017-05-30] MEDS: LACTULOSE 10 GM/15 ML UDC PO SCH ×2 (08:30→19:37)
[2017-05-30] MEDS: SENNA/DOCUSATE TABLET PO SCH (08:30)
[2017-05-30] MEDS: HYDROcodone/APAP 5/325 TABLET PO PRN ×3 (08:33→19:37)
[2017-05-30 08:52] LABS: TROPONIN I 0.094 ng/mL (0.000-0.045)
[2017-05-30 12:29] VITALS: BP 124/69
[2017-05-30] MEDS: ENOXAPARIN 30 MG/0.3 ML SQ SCH (15:04)
[2017-05-30 19:22] VITALS: BP 144/71
[2017-05-30] MEDS: DOCUSATE 100 MG CAPSULE PO PRN (19:37)
[2017-05-31 01:31] VITALS: BP 152/67
[2017-05-31] MEDS: HYDROcodone/APAP 5/325 TABLET PO PRN ×4 (01:51→21:34)
[2017-05-31 05:31] LABS: ALBUMIN 2.6 g/dL (3.4-5.0); ANION GAP 7 mmol/L (5-15); CALCIUM 8.4 mg/dL (8.5-10.1); CHLORIDE 109 mmol/L (98-107)
[2017-05-31 05:34] LABS: ALANINE AMINOTRANSFERASE 45 U/L (12-78); ALKALINE PHOSPHATASE 91 U/L (45-117); BILIRUBIN,TOTAL 0.4 mg/dL (0.2-1.0); CREATININE 0.85 mg/dL (0.55-1.02); TOTAL PROTEIN 6.6 g/dL (6.4-8.2)
[2017-05-31 05:45] LABS: BASOPHILS # (AUTO) 0.05 x10^3/uL (0-0.1); BASOPHILS % (AUTO) 1 % (0-1); EOSINOPHILS % (AUTO) 2 % (1-7); LYMPHOCYTES # (AUTO) 2.59 x10^3/uL (1-3.4); LYMPHOCYTES % (AUTO) 38 % (22-44); MD NO; MEAN CORPUSCULAR HEMOGLOBIN 29.3 pg (27.0-34.8); MEAN CORPUSCULAR VOLUME 88.7 fL (80-100); MEAN PLATELET VOLUME 12.1 fL (7.4-10.4); MONOCYTES # (AUTO) 0.44 x10^3/uL (0.2-0.8); MONOCYTES % (AUTO) 6 % (2-9); NEUTROPHILS # (AUTO) 3.69 x10^3/uL (1.8-6.8); NEUTROPHILS % (AUTO) 54 % (42-75); PLATELET COUNT 154 x10^3/uL (130-400); RED BLOOD COUNT 3.91 x10^6/uL (3.82-5.3); RED CELL DISTRIBUTION WIDTH 16.4 % (9.6-15.2)
[2017-05-31 07:19] VITALS: BP 154/67
[2017-05-31] MEDS: LACTULOSE 10 GM/15 ML UDC PO SCH ×2 (08:04→21:18)
[2017-05-31] MEDS: GABAPENTIN 300 MG CAPSULE PO SCH ×3 (08:04→21:18)
[2017-05-31] MEDS: POTASSIUM CHLORIDE 10 MEQ TABLET.ER PO SCH (08:04)
[2017-05-31] MEDS: INSULIN LISPRO 100 UNITS/ML, PEN SQ-INSULIN SCH ×4 (08:04→21:35)
[2017-05-31] MEDS: FUROSEMIDE 20 MG TABLET PO SCH (08:04)
[2017-05-31] MEDS: PENTOXIFYLLINE 400 MG TABLET.ER PO SCH ×3 (08:04→21:18)
[2017-05-31] MEDS: SENNA/DOCUSATE TABLET PO SCH (08:12)
[2017-05-31] MEDS ORDERED: POLY17PO5 PO (14:16)
[2017-05-31] MEDS ORDERED: GABA300C10 PO (14:16)
[2017-05-31 14:44] VITALS: BP 167/70
[2017-05-31] MEDS: ENOXAPARIN 30 MG/0.3 ML SQ SCH (15:14)
[2017-05-31 19:31] VITALS: BP 165/65
[2017-06-01 00:23] VITALS: BP_SYST 178; BP_SYST 188; BP_DIAS 71; BP_DIAS 72
[2017-06-01 01:45] VITALS: BP 169/73
[2017-06-01] MEDS: HYDROcodone/APAP 5/325 TABLET PO PRN ×3 (01:48→21:37)
[2017-06-01 06:31] VITALS: BP 134/60
[2017-06-01] MEDS: FUROSEMIDE 20 MG TABLET PO SCH (08:29)
[2017-06-01] MEDS: GABAPENTIN 300 MG CAPSULE PO SCH ×3 (08:29→21:36)
[2017-06-01] MEDS: SENNA/DOCUSATE TABLET PO SCH (08:29)
[2017-06-01] MEDS: PENTOXIFYLLINE 400 MG TABLET.ER PO SCH ×3 (08:30→21:36)
[2017-06-01] MEDS: POTASSIUM CHLORIDE 10 MEQ TABLET.ER PO SCH (08:30)
[2017-06-01] MEDS: LACTULOSE 10 GM/15 ML UDC PO SCH ×2 (08:30→21:36)
[2017-06-01] MEDS: INSULIN LISPRO 100 UNITS/ML, PEN SQ-INSULIN SCH ×4 (08:33→21:40)
[2017-06-01 12:30] VITALS: BP 179/66
[2017-06-01 14:20] VITALS: BP 153/67
[2017-06-01] MEDS: ENOXAPARIN 30 MG/0.3 ML SQ SCH (15:53)
[2017-06-01 16:13] LABS: CULTURE INDICATED? YES; MICROSCOPIC INDICATED
[2017-06-01 18:50] VITALS: BP 126/69
[2017-06-02 02:07] VITALS: BP 151/65
[2017-06-02 07:01] VITALS: BP 174/85
[2017-06-02] MEDS: LACTULOSE 10 GM/15 ML UDC PO SCH ×2 (08:10→20:56)
[2017-06-02] MEDS: SENNA/DOCUSATE TABLET PO SCH (08:11)
[2017-06-02] MEDS: PENTOXIFYLLINE 400 MG TABLET.ER PO SCH ×3 (08:11→21:08)
[2017-06-02] MEDS: POTASSIUM CHLORIDE 10 MEQ TABLET.ER PO SCH (08:12)
[2017-06-02] MEDS: GABAPENTIN 300 MG CAPSULE PO SCH ×3 (08:12→20:48)
[2017-06-02] MEDS: INSULIN LISPRO 100 UNITS/ML, PEN SQ-INSULIN SCH ×4 (08:12→21:09)
[2017-06-02] MEDS: FUROSEMIDE 20 MG TABLET PO SCH (08:12)
[2017-06-02] MEDS: HYDROcodone/APAP 5/325 TABLET PO PRN ×3 (08:13→20:48)
[2017-06-02 14:54] VITALS: BP 164/77
[2017-06-02] MEDS: ENOXAPARIN 30 MG/0.3 ML SQ SCH (15:04)
[2017-06-02 18:42] VITALS: BP 137/70
[2017-06-03 03:32] VITALS: BP 143/68
[2017-06-03] MEDS: HYDROcodone/APAP 5/325 TABLET PO PRN ×3 (04:58→19:28)
[2017-06-03 05:24] LABS: ALBUMIN 2.6 g/dL (3.4-5.0); ANION GAP 9 mmol/L (5-15); CALCIUM 8.5 mg/dL (8.5-10.1); CHLORIDE 106 mmol/L (98-107); CREATININE 0.87 mg/dL (0.55-1.02)
[2017-06-03 07:12] VITALS: BP 142/72
[2017-06-03] MEDS: INSULIN LISPRO 100 UNITS/ML, PEN SQ-INSULIN SCH ×4 (07:26→21:16)
[2017-06-03] MEDS: GABAPENTIN 300 MG CAPSULE PO SCH ×3 (08:37→19:28)
[2017-06-03] MEDS: FUROSEMIDE 20 MG TABLET PO SCH (08:37)
[2017-06-03] MEDS: PENTOXIFYLLINE 400 MG TABLET.ER PO SCH ×3 (08:38→19:28)
[2017-06-03] MEDS: POTASSIUM CHLORIDE 10 MEQ TABLET.ER PO SCH (08:38)
[2017-06-03] MEDS: SENNA/DOCUSATE TABLET PO SCH (08:38)
[2017-06-03] MEDS: LACTULOSE 10 GM/15 ML UDC PO SCH ×2 (08:38→19:28)
[2017-06-03 13:40] VITALS: BP 121/71
[2017-06-03] MEDS: ENOXAPARIN 30 MG/0.3 ML SQ SCH (15:00)
[2017-06-03 18:58] VITALS: BP 164/68
[2017-06-04 02:28] VITALS: BP 133/63
[2017-06-04] MEDS: HYDROcodone/APAP 5/325 TABLET PO PRN ×3 (04:11→22:11)
[2017-06-04 07:13] VITALS: BP 160/79
[2017-06-04] MEDS: INSULIN LISPRO 100 UNITS/ML, PEN SQ-INSULIN SCH ×4 (07:25→21:35)
[2017-06-04] MEDS: LACTULOSE 10 GM/15 ML UDC PO SCH ×2 (09:06→20:48)
[2017-06-04] MEDS: SENNA/DOCUSATE TABLET PO SCH (09:17)
[2017-06-04] MEDS: PENTOXIFYLLINE 400 MG TABLET.ER PO SCH ×3 (09:17→20:42)
[2017-06-04] MEDS: GABAPENTIN 300 MG CAPSULE PO SCH ×3 (09:17→20:42)
[2017-06-04] MEDS: POTASSIUM CHLORIDE 10 MEQ TABLET.ER PO SCH (09:17)
[2017-06-04] MEDS: FUROSEMIDE 20 MG TABLET PO SCH (09:18)
[2017-06-04 10:36] VITALS: BP 124/64
[2017-06-04 14:17] VITALS: BP 123/69
[2017-06-04] MEDS: ENOXAPARIN 30 MG/0.3 ML SQ SCH (15:01)
[2017-06-04 20:29] VITALS: BP 153/66
[2017-06-04] MEDS: INSULIN GLARGINE 100 UNITS/ML, PEN SQ-INSULIN SCH (21:35)
[2017-06-05 01:46] VITALS: BP 148/72
[2017-06-05 08:45] VITALS: BP 155/68
[2017-06-05] MEDS: SENNA/DOCUSATE TABLET PO SCH (08:48)
[2017-06-05] MEDS: POTASSIUM CHLORIDE 10 MEQ TABLET.ER PO SCH (08:48)
[2017-06-05] MEDS: GABAPENTIN 300 MG CAPSULE PO SCH ×3 (08:48→21:20)
[2017-06-05] MEDS: LACTULOSE 10 GM/15 ML UDC PO SCH ×2 (08:48→21:00)
[2017-06-05] MEDS: FUROSEMIDE 20 MG TABLET PO SCH (08:48)
[2017-06-05] MEDS: INSULIN LISPRO 100 UNITS/ML, PEN SQ-INSULIN SCH ×4 (08:48→21:30)
[2017-06-05] MEDS: PENTOXIFYLLINE 400 MG TABLET.ER PO SCH ×3 (08:48→21:29)
[2017-06-05] MEDS: ENOXAPARIN 30 MG/0.3 ML SQ SCH (13:49)
[2017-06-05 15:59] VITALS: BP 163/72
[2017-06-05] MEDS: HYDROcodone/APAP 5/325 TABLET PO PRN (16:46)
[2017-06-05 19:28] VITALS: BP 139/73
[2017-06-05] MEDS: INSULIN GLARGINE 100 UNITS/ML, PEN SQ-INSULIN SCH (21:00)
[2017-06-06] MEDS: HYDROcodone/APAP 5/325 TABLET PO PRN ×3 (00:21→21:22)
[2017-06-06 00:55] VITALS: BP 158/71
[2017-06-06 06:02] LABS: BASOPHILS # (AUTO) 0.03 x10^3/uL (0-0.1); BASOPHILS % (AUTO) 1 % (0-1); EOSINOPHILS # (AUTO) 0.16 x10^3/uL (0-0.4); EOSINOPHILS % (AUTO) 3 % (1-7); LYMPHOCYTES % (AUTO) 50 % (22-44); MD NO; MEAN CORPUSCULAR HEMOGLOBIN 29.7 pg (27.0-34.8); MEAN CORPUSCULAR HGB CONC 33.3 g/dL (32.4-35.8); MEAN CORPUSCULAR VOLUME 89.3 fL (80-100); MEAN PLATELET VOLUME 11.6 fL (7.4-10.4); MONOCYTES % (AUTO) 7 % (2-9); NEUTROPHILS # (AUTO) 2.22 x10^3/uL (1.8-6.8); NEUTROPHILS % (AUTO) 40 % (42-75); PLATELET COUNT 154 x10^3/uL (130-400); RED BLOOD COUNT 4.02 x10^6/uL (3.82-5.3); RED CELL DISTRIBUTION WIDTH 16.1 % (9.6-15.2)
[2017-06-06 06:10] LABS: INTERNATIONAL NORMALIZED RATIO 1.05 (0.93-1.1); PROTHROMBIN TIME 10.9 Seconds (9.6-11.5)
[2017-06-06 06:13] LABS: ANION GAP 8 mmol/L (5-15); CALCIUM 8.5 mg/dL (8.5-10.1); CHLORIDE 104 mmol/L (98-107); CREATININE 0.89 mg/dL (0.55-1.02)
[2017-06-06] MEDS ORDERED: MAGNESIUM SULFATE PMX 2GM/50ML 50 ML IV ONE (07:30)
[2017-06-06] MEDS: INSULIN LISPRO 100 UNITS/ML, PEN SQ-INSULIN SCH ×4 (08:24→21:23)
[2017-06-06] MEDS: SENNA/DOCUSATE TABLET PO SCH (09:00)
[2017-06-06] MEDS: FUROSEMIDE 20 MG TABLET PO SCH (09:00)
[2017-06-06 09:02] VITALS: BP 151/69
[2017-06-06] MEDS: LACTULOSE 10 GM/15 ML UDC PO SCH ×2 (09:49→21:22)
[2017-06-06] MEDS: POTASSIUM CHLORIDE 10 MEQ TABLET.ER PO SCH (09:50)
[2017-06-06] MEDS: GABAPENTIN 300 MG CAPSULE PO SCH ×3 (09:50→21:22)
[2017-06-06] MEDS: PENTOXIFYLLINE 400 MG TABLET.ER PO SCH ×3 (09:52→21:23)
[2017-06-06] MEDS: SODIUM CHLORIDE 0.9% 1,000 ML IV SCH ×2 (09:52→21:22)
[2017-06-06 13:51] VITALS: BP 157/70
[2017-06-06] MEDS: ENOXAPARIN 30 MG/0.3 ML SQ SCH (14:40)
[2017-06-06 19:57] VITALS: BP 176/70
[2017-06-06] MEDS: INSULIN GLARGINE 100 UNITS/ML, PEN SQ-INSULIN SCH (21:23)
[2017-06-07 01:56] VITALS: BP 185/67
[2017-06-07] MEDS: HYDROcodone/APAP 5/325 TABLET PO PRN (02:20)
[2017-06-07] MEDS: SODIUM CHLORIDE 0.9% 1,000 ML IV SCH (06:28)
[2017-06-07 07:58] VITALS: BP 170/69
[2017-06-07] MEDS: INSULIN LISPRO 100 UNITS/ML, PEN SQ-INSULIN SCH ×4 (08:09→21:57)
[2017-06-07] MEDS: FUROSEMIDE 20 MG TABLET PO SCH (08:14)
[2017-06-07] MEDS: LACTULOSE 10 GM/15 ML UDC PO SCH ×2 (08:14→21:37)
[2017-06-07] MEDS: PENTOXIFYLLINE 400 MG TABLET.ER PO SCH ×3 (08:15→21:37)
[2017-06-07] MEDS: GABAPENTIN 300 MG CAPSULE PO SCH ×3 (08:15→21:37)
[2017-06-07] MEDS: SENNA/DOCUSATE TABLET PO SCH (08:15)
[2017-06-07] MEDS: POTASSIUM CHLORIDE 10 MEQ TABLET.ER PO SCH (08:15)
[2017-06-07 13:37] VITALS: BP 178/75
[2017-06-07] MEDS: ENOXAPARIN 30 MG/0.3 ML SQ SCH (15:00)
[2017-06-07] MEDS ORDERED: FENTANYL PF 250 MCG/5ML ONE (17:54)
[2017-06-07] MEDS ORDERED: SODIUM CHLORIDE 0.9% PF 10ML ONE (18:09)
[2017-06-07] MEDS ORDERED: CEFAZOLIN 1,000 MG ONE ×2 (18:09)
[2017-06-07] MEDS ORDERED: PROPOFOL 10 MG/ML, 20ML ONE (18:12)
[2017-06-07] MEDS ORDERED: ONDANSETRON 2MG/ML, 2ML ONE (18:25)
[2017-06-07] MEDS ORDERED: DEXAMETHASONE 4 MG/ML, 1ML ONE (18:25)
[2017-06-07] MEDS ORDERED: HYDROmorphone 1 MG/ML, 1ML IV PRN ×2 (18:30→21:00)
[2017-06-07] MEDS ORDERED: ONDANSETRON 2MG/ML, 2ML IVPush PRN (18:30)
[2017-06-07] MEDS ORDERED: OXYcodone 5 MG/5 ML ORAL.SOL UDC PO PRN (18:30)
[2017-06-07] MEDS ORDERED: PROMETHAZINE 12.5 MG SUPP PR PRN (18:30)
[2017-06-07] MEDS ORDERED: PROMETHAZINE 25 MG/ML, 1ML IV PRN (18:30)
[2017-06-07] MEDS ORDERED: MEPERIDINE/PF 25MG/0.5ML IVPush PRN (18:30)
[2017-06-07] MEDS ORDERED: LABETALOL 5MG/ML, 20ML IV PRN (18:30)
[2017-06-07] MEDS ORDERED: ACETAMINOPHEN 325 MG TABLET PO PRN (18:30)
[2017-06-07] MEDS ORDERED: morphine SULFATE 10 MG/ML, 1ML ONE (19:00)
[2017-06-07] MEDS ORDERED: FENTANYL PF 100 MCG/2ML ONE (19:00)
[2017-06-07] MEDS: morphine SULFATE 10 MG/ML, 1ML IV PRN ×4 (19:02→19:37)
[2017-06-07] MEDS ORDERED: LABETALOL 5MG/ML, 20ML ONE (19:03)
[2017-06-07] MEDS ORDERED: hydrALAzine 20 MG/ML, 1ML ONE (19:03)
[2017-06-07] MEDS: hydrALAzine 20 MG/ML, 1ML IV PRN ×2 (19:12→19:44)
[2017-06-07] MEDS: FENTANYL PF 100 MCG/2ML IV PRN ×2 (19:15→19:24)
[2017-06-07] MEDS ORDERED: OXYcodone 5 MG/5 ML ORAL.SOL UDC ONE (19:17)
[2017-06-07 20:10] VITALS: BP 127/59
[2017-06-07] MEDS: OXYcodone/APAP 5/325MG TABLET PO PRN (21:37)
[2017-06-07] MEDS: INSULIN GLARGINE 100 UNITS/ML, PEN SQ-INSULIN SCH (21:56)
[2017-06-08] VITALS: BP 127/50
[2017-06-08] MEDS: OXYcodone/APAP 5/325MG TABLET PO PRN ×3 (02:26→12:09)
[2017-06-08 04:01] VITALS: BP 110/55
[2017-06-08 05:03] LABS: BASOPHILS # (AUTO) 0.04 x10^3/uL (0-0.1); BASOPHILS % (AUTO) 1 % (0-1); EOSINOPHILS # (AUTO) 0.04 x10^3/uL (0-0.4); EOSINOPHILS % (AUTO) 0 % (1-7); LYMPHOCYTES # (AUTO) 2.31 x10^3/uL (1-3.4); LYMPHOCYTES % (AUTO) 29 % (22-44); MD NO; MEAN CORPUSCULAR HEMOGLOBIN 29.2 pg (27.0-34.8); MEAN CORPUSCULAR HGB CONC 32.7 g/dL (32.4-35.8); MEAN CORPUSCULAR VOLUME 89.5 fL (80-100); MEAN PLATELET VOLUME 10.1 fL (7.4-10.4); MONOCYTES # (AUTO) 0.47 x10^3/uL (0.2-0.8); MONOCYTES % (AUTO) 6 % (2-9); NEUTROPHILS # (AUTO) 5.19 x10^3/uL (1.8-6.8); NEUTROPHILS % (AUTO) 65 % (42-75); PLATELET COUNT 158 x10^3/uL (130-400); RED BLOOD COUNT 3.94 x10^6/uL (3.82-5.3); RED CELL DISTRIBUTION WIDTH 16.4 % (9.6-15.2)
[2017-06-08 06:14] LABS: ANION GAP 9 mmol/L (5-15); CALCIUM 8.5 mg/dL (8.5-10.1); CHLORIDE 109 mmol/L (98-107); CREATININE 1.03 mg/dL (0.55-1.02)
[2017-06-08] MEDS: INSULIN LISPRO 100 UNITS/ML, PEN SQ-INSULIN SCH ×4 (08:32→22:01)
[2017-06-08] MEDS: FUROSEMIDE 20 MG TABLET PO SCH (08:33)
[2017-06-08] MEDS: POTASSIUM CHLORIDE 10 MEQ TABLET.ER PO SCH (08:33)
[2017-06-08] MEDS: GABAPENTIN 300 MG CAPSULE PO SCH ×3 (08:33→21:12)
[2017-06-08] MEDS: SENNA/DOCUSATE TABLET PO SCH (08:33)
[2017-06-08] MEDS: LACTULOSE 10 GM/15 ML UDC PO SCH ×2 (08:33→21:12)
[2017-06-08] MEDS: PENTOXIFYLLINE 400 MG TABLET.ER PO SCH ×3 (08:41→21:00)
[2017-06-08] MEDS: DOCUSATE 100 MG CAPSULE PO PRN (08:41)
[2017-06-08 09:31] VITALS: BP 96/57
[2017-06-08 15:04] VITALS: BP 94/53
[2017-06-08] MEDS: ENOXAPARIN 30 MG/0.3 ML SQ SCH (15:22)
[2017-06-08] MEDS ORDERED: OXYcodone/APAP 5/325MG TABLET PO PRN (16:00)
[2017-06-08] MEDS ORDERED: SODIUM CHLORIDE 0.9% 1,000 ML IV ONE (16:00)
[2017-06-08] MEDS: HYDROcodone/APAP 5/325 TABLET PO PRN ×2 (16:57→21:13)
[2017-06-08 19:11] VITALS: BP 129/65
[2017-06-08] MEDS: INSULIN GLARGINE 100 UNITS/ML, PEN SQ-INSULIN SCH (22:00)
[2017-06-09] VITALS: BP 151/67
[2017-06-09] MEDS: HYDROcodone/APAP 5/325 TABLET PO PRN ×4 (01:04→20:54)
[2017-06-09 05:32] LABS: BASOPHILS # (AUTO) 0.03 x10^3/uL (0-0.1); BASOPHILS % (AUTO) 0 % (0-1); EOSINOPHILS # (AUTO) 0.01 x10^3/uL (0-0.4); EOSINOPHILS % (AUTO) 0 % (1-7); LYMPHOCYTES % (AUTO) 20 % (22-44); MD NO; MEAN CORPUSCULAR HEMOGLOBIN 29.5 pg (27.0-34.8); MEAN CORPUSCULAR VOLUME 89.5 fL (80-100); MEAN PLATELET VOLUME 11.1 fL (7.4-10.4); MONOCYTES # (AUTO) 0.47 x10^3/uL (0.2-0.8); MONOCYTES % (AUTO) 5 % (2-9); NEUTROPHILS # (AUTO) 6.82 x10^3/uL (1.8-6.8); NEUTROPHILS % (AUTO) 75 % (42-75); PLATELET COUNT 158 x10^3/uL (130-400); RED BLOOD COUNT 3.85 x10^6/uL (3.82-5.3); RED CELL DISTRIBUTION WIDTH 16.4 % (9.6-15.2)
[2017-06-09 05:44] LABS: CHLORIDE 107 mmol/L (98-107)
[2017-06-09 05:52] LABS: ANION GAP 10 mmol/L (5-15); CALCIUM 8.5 mg/dL (8.5-10.1); CREATININE 1.04 mg/dL (0.55-1.02)
[2017-06-09 07:15] VITALS: BP 167/64
[2017-06-09] MEDS: FUROSEMIDE 20 MG TABLET PO SCH (09:19)
[2017-06-09] MEDS: LACTULOSE 10 GM/15 ML UDC PO SCH ×2 (09:20→20:56)
[2017-06-09] MEDS: INSULIN LISPRO 100 UNITS/ML, PEN SQ-INSULIN SCH ×4 (09:20→21:17)
[2017-06-09] MEDS: GABAPENTIN 300 MG CAPSULE PO SCH ×3 (09:20→21:16)
[2017-06-09] MEDS: SENNA/DOCUSATE TABLET PO SCH (09:20)
[2017-06-09] MEDS: POTASSIUM CHLORIDE 10 MEQ TABLET.ER PO SCH (09:20)
[2017-06-09] MEDS: PENTOXIFYLLINE 400 MG TABLET.ER PO SCH ×3 (09:21→20:55)
[2017-06-09 13:50] VITALS: BP 131/70
[2017-06-09] MEDS: ENOXAPARIN 30 MG/0.3 ML SQ SCH (15:30)
[2017-06-09 19:59] VITALS: BP 166/67
[2017-06-09] MEDS: INSULIN GLARGINE 100 UNITS/ML, PEN SQ-INSULIN SCH (21:18)
[2017-06-10] MEDS: HYDROcodone/APAP 5/325 TABLET PO PRN ×4 (01:00→16:44)
[2017-06-10 02:02] VITALS: BP 160/68
[2017-06-10 07:14] VITALS: BP 153/63
[2017-06-10] MEDS: POTASSIUM CHLORIDE 10 MEQ TABLET.ER PO SCH (08:18)
[2017-06-10] MEDS: GABAPENTIN 300 MG CAPSULE PO SCH ×2 (08:18→16:36)
[2017-06-10] MEDS: FUROSEMIDE 20 MG TABLET PO SCH (08:18)
[2017-06-10] MEDS: LACTULOSE 10 GM/15 ML UDC PO SCH (08:18)
[2017-06-10] MEDS: PENTOXIFYLLINE 400 MG TABLET.ER PO SCH ×2 (08:18→16:36)
[2017-06-10] MEDS: SENNA/DOCUSATE TABLET PO SCH (08:19)
[2017-06-10] MEDS: INSULIN LISPRO 100 UNITS/ML, PEN SQ-INSULIN SCH ×3 (08:19→16:45)
[2017-06-10] MEDS ORDERED: ENOX30SY4 SQ (11:10)
[2017-06-10 12:46] VITALS: BP 188/73
[2017-06-10 13:05] VITALS: BP 156/84
[2017-06-10] MEDS: ENOXAPARIN 30 MG/0.3 ML SQ SCH (16:36)
[2017-06-10 18:03] VITALS: BP 152/88
[2017-06-10] MEDS ORDERED: INSULIN GLARGINE 100 UNITS/ML, PEN SQ-INSULIN SCH (21:00)
== END 2017-06-10 18:30 | DRG 239 ==
LOC: ED 12:52 → EDIP 12:53 → ED 13:04 → 5SO 15:55 → 4NOR 06-02 12:55
PROVIDERS: ADMIT Internal Medicine; ATTEND Hospitalist
PROC: 0Y6J0Z1 Detachment at Left Lower Leg, High, Open Approach (ICD-10-PCS; principal; 2017-06-07 19:30)
DX: E11.52 Type 2 diabetes mellitus with diabetic peripheral angiopathy with gangrene (principal); N17.0 Acute kidney failure with tubular necrosis; I70.261 Atherosclerosis of native arteries of extremities with gangrene, right leg; I50.32 Chronic diastolic (congestive) heart failure; L97.929 Non-pressure chronic ulcer of unspecified part of left lower leg with unspecified severity; I70.262 Atherosclerosis of native arteries of extremities with gangrene, left leg; L97.528 Non-pressure chronic ulcer of other part of left foot with other specified severity; Z66 Do not resuscitate; I11.0 Hypertensive heart disease with heart failure; E11.622 Type 2 diabetes mellitus with other skin ulcer; E11.42 Type 2 diabetes mellitus with diabetic polyneuropathy; E11.65 Type 2 diabetes mellitus with hyperglycemia; F03.90 Unspecified dementia, unspecified severity, without behavioral disturbance, psychotic disturbance, mood disturbance, and anxiety; D64.9 Anemia, unspecified; E66.9 Obesity, unspecified; Z68.29 Body mass index [BMI] 29.0-29.9, adult; Z79.4 Long term (current) use of insulin; Z79.899 Other long term (current) drug therapy; Z86.73 Personal history of transient ischemic attack (TIA), and cerebral infarction without residual deficits; Z87.440 Personal history of urinary (tract) infections
CPT/HCPCS: 36415; 71045; 80048; 80053; 80061; 81001; 82040; 82962; 83735; 84100; 84484; 85025; 85520; 85610; 85730; 87086; 88307; 93005; 93922; 93925; 96361; 96374; 96375; J0690; J1100; J1650; J2405; J2704; J3010; J0360; J1815; J2270; J3475; J7030